=== PATIENT | female | born 1990 | race Caucasian/White ===

== ENCOUNTER → 2020-11-02 14:09 | Outpatient (CLI) | payer MEDICAID, SELFPAY ==
[2014-03-17 21:03] VITALS: BMI 27.1
[2020-11-02 15:04] LABS: Absolute Lymphocyte Count 2.57 X10^3/uL (0.83-4.51); Absolute Neutrophil Count 7.8 X10^3/uL (2.0-7.7); Basophil# 0.04 X10^3/uL; Basophil% 0.3 % (0-1); Eosinophil# 0.27 X10^3/uL; Eosinophils% 2.4 % (0-5); Hematocrit 33.8 % (37-47); Hemoglobin 11.1 g/dL (12.0-15.0); Lymphocyte # 2.57 X10^3/ul (0.83-4.51); Lymphocyte % 22.5 % (19-41); Mean Corp Hgb Conc 32.8 g/dL (32-36); Mean Corpuscular Hgb 28.2 pg (27.0-32.0); Mean Platelet Vol. 8.9 fl (6.2-12.0); Monocyte# 0.64 X10^3/uL; Monocyte% 5.6 % (0-10); NRBC Flagged by Analyzer 0 % (0-5); Neutrophil % 68.2 % (47-70); Platelet Count 400 K/mm3 (150-450); RBC Distribution Width SD 40.2 fl (35.1-43.9); Red Blood Count 3.93 M/mm3 (4.2-5.4); White Blood Count 11.4 K/mm3 (4.4-11.0)
[2020-11-02 15:20] LABS: Glucose Challenge Gest 1H 50g 125 mg/dL (70-140)
[2020-11-03 09:26] LABS: HIV - WCH Non-Reactive (Nonreactive); Hepatitis B Surface Antigen Non-Reactive (Nonreactive); Hepatitis C Antibody Non-Reactive (Nonreactive); Rubella IgG Reactive (Nonreactive); Syphilis Antibodies Non-reactive
[2020-11-06 05:06] LABS: Chlamydia By Nucleic Acid AMP Negative (Negative)
[2020-11-06 08:41] LABS: Gonococcus By Nucleic Acid AMP Negative (Negative)
[2020-11-10 20:38] LABS: HPV APTIMA, High Risk Negative (Negative); HPV Reflexed? YES, CHARGE PATIENT
== END ==
PROVIDERS: PCP Internal Medicine; Visit Provider Obstetrics & Gynecology
DX: Z34.82 Encounter for supervision of other normal pregnancy, second trimester (principal); Z12.4 Encounter for screening for malignant neoplasm of cervix
CPT/HCPCS: 82950; 85025; 86703; 86762; 86780; 86803; 87086; 87088; 87340; 87491; 87591; 87624; 88175; G0145

== ENCOUNTER 2020-11-09 16:48 | Outpatient (CLI) | payer MEDICAID, SELFPAY ==
[2014-03-17 21:03] VITALS: BMI 27.1
[2020-11-09 17:01] VITALS: BMI 30.7
[2020-11-09 17:08] VITALS: BP 120/85; PULSE 83
--- NOTE | 2020-11-09 23:54 | OB.TRI.NOTE ---
HPI - General HPI Narrative TASHI ABRAHAM, is a 30 F BIB EMS at 27wga with c/o lightheadedness and feeling overheated while at 180 program. She was wearing a hoodie overtop of a shirt while outside and had eaten once today - approximately 2 hours prior to episode. EMS was called. Denies contractions, leaking of fluid or vaginal bleeding. PFSH PFSH Home Medications hydroxyzine HCl 50 mg PO QHS 11/09/20 [History Last Taken 1 Day Ago ~11/08/20] sertraline [Zoloft] 100 mg PO DAILY 11/09/20 [History Last Taken 1 Day Ago ~11/08/20] vit D3-folic [id number] 1 tab PO DAILY 11/09/20 [History Last Taken 1 Day Ago ~11/08/20] Allergy/AdvReac Type Severity Reaction Status Date / Time No Known Allergies Allergy Verified 03/17/14 21:06 Social History Smoking Status: Current every day smoker NST FHR Rate Baby A Baseline: 150 Variability:: Minimal Accelerations:: 15 x 15 Decelerations:: Variable NST Reactive:: Appropriate for gestational age FHR Category:: Category II Uterine Activity:: 0/10 Assessment & Plan (1) 27 weeks gestation of : PLAN: Pt feeling well and symptoms resolved d/c home Encourage hydration
== END 2020-11-09 18:05 | disposition home or self-care (01) ==
LOC: WPOUT 16:56 → WP 16:57
PROVIDERS: Referring Provider Obstetrics & Gynecology; Visit Provider Obstetrics & Gynecology
DX: O26.892 Other specified pregnancy related conditions, second trimester (principal); O99.332 Smoking (tobacco) complicating pregnancy, second trimester; R42 Dizziness and giddiness; F17.200 Nicotine dependence, unspecified, uncomplicated; Z3A.27 27 weeks gestation of pregnancy
CPT/HCPCS: 59025; 59050; 99218; G0378

== ENCOUNTER → 2021-01-12 | Outpatient (CLI) | payer MEDICAID, SELFPAY | END | disposition home or self-care (01) | LOC: LABSPEC 15:12 | PROVIDERS: Visit Provider Obstetrics & Gynecology | DX: Z36.85 Encounter for antenatal screening for Streptococcus B (principal) | CPT/HCPCS: 87081 ==

== ENCOUNTER 2021-02-04 15:40 | Inpatient (IN) | payer MEDICAID, SELFPAY ==
[2021-02-04] VITALS (48 sets, daily range): BP systolic 122–157; BP diastolic 65–96; PULSE 66–92; TEMP 36.5–36.9; O2SAT 96–98; BMI 36.6
[2021-02-04] MEDS: Lactated Ringers 1,000 ML 50 ML IV (16:15)
[2021-02-04 16:37] LABS: Amphetamine Urine VISTA NEGATIVE (<1000 ng/mL); Barbiturate Urine VISTA NEGATIVE (< 200 ng/mL); Benzodiazepine Urine VISTA NEGATIVE (< 200 ng/mL); Cocaine Urine VISTA NEGATIVE (< 300 ng/mL); Ecstacy Urine VISTA NEGATIVE (< 500 ng/mL); Methadone Urine VISTA NEGATIVE (< 300 ng/mL); PCP Urine VISTA NEGATIVE (< 25 ng/mL); THC Urine VISTA NEGATIVE (< 50 ng/mL); Vista UDS pH Range 6
[2021-02-04 16:49] LABS: Absolute Lymphocyte Count 2.45 X10^3/uL (0.83-4.51); Absolute Neutrophil Count 7.1 X10^3/uL (2.0-7.7); Basophil# 0.04 X10^3/uL; Basophil% 0.4 % (0-1); Eosinophil# 0.18 X10^3/uL; Eosinophils% 1.7 % (0-5); Hematocrit 33.7 % (37-47); Hemoglobin 10.8 g/dL (12.0-15.0); Lymphocyte # 2.45 X10^3/ul (0.83-4.51); Lymphocyte % 23.2 % (19-41); Mean Corpuscular Hgb 25.8 pg (27.0-32.0); Mean Corpuscular Volume 80.6 fL (81-99); Mean Platelet Vol. 9.2 fl (6.2-12.0); Monocyte# 0.74 X10^3/uL; NRBC Flagged by Analyzer 0 % (0-5); Neutrophil # 7.06 X10^3/uL (2.7-7.7); Neutrophil % 66.9 % (47-70); Platelet Count 356 K/mm3 (150-450); RBC Distribution Width CV 14.5 % (11.6-14.6); RBC Distribution Width SD 41.7 fl (35.1-43.9); Red Blood Count 4.18 M/mm3 (4.2-5.4); White Blood Count 10.6 K/mm3 (4.4-11.0)
[2021-02-04] MEDS: Oxytocin 30 units/NS 500 ml 30 UNITS/500 ML IV.SOLN IV (18:11)
--- NOTE | 2021-02-04 18:17 | HP.PCM.OB_ITS ---
HPI - General General Date of Admission: 02/04/21 HPI Narrative AYLA ABRAHAM, is a 31 F who presents at 39 5/7 weeks gestation with leaking of clear fluid since 1400h. Maternal Data Information SANDRA Calculator Estimated Delivery Date Method Current WG Current Estimate 02/06/21 LMP (Certain) 39w 5d PFSH PFSH Medical History (Updated 02/04/21 @ 18:[address] Yokasta Queen MD) ADHD (attention deficit hyperactivity disorder) Anxiety Depression History of drug use Marginal insertion of umbilical cord Methamphetamine abuse in remission PCOS (polycystic ovarian syndrome) SAB (spontaneous ) Tetrahydrocannabinol (THC) use disorder, mild, abuse Home Medications sertraline [Zoloft] 125 mg PO DAILY 11/09/20 [History Last Taken 02/03/21 23:30 125 mg] Allergy/AdvReac Type Severity Reaction Status Date / Time No Known Allergies Allergy Verified 03/17/14 21:06 Family History Grandfather CVA (cerebral vascular accident) Heart disease Cancer Grandmother CVA (cerebral vascular accident) Diabetes Grandfather Cancer Diabetes Grandmother Diabetes Surgical History (Updated 02/04/21 @ 18:[address] Yokasta Queen MD) H/O elbow surgery S/P ACL reconstruction Social History (Updated 02/04/21 @ 16:41 by Licha Xie) number of children: 0 Smoking Status: Former smoker History 2 Elective abortions 0 Hx Para 0 Spontaneous abortions 1 Hx # Term Pregnancies 0 Ectopic pregnancies 0 Hx # Pregnancies 0 Multiple births 0 # of living children 0 NST FHR Rate Baby A Baseline: 135 Variability:: Moderate Accelerations:: 15 x 15 Decelerations:: None NST Reactive:: Yes FHR Category:: Category I Uterine Activity:: 1-2/10 min Vital Signs Vital Signs Vital Signs: 02/04/21 15:36 02/04/21 15:37 02/04/21 15:39 Temperature 98.4 F Pulse Rate 92 89 Blood Pressure 132/83 H BP Systolic 132 BP Diastolic 83 Pulse Ox 97 02/04/21 16:57 02/04/21 16:58 Temperature 97.7 F L Pulse Rate 83 Blood Pressure 133/80 H BP Systolic 133 BP Diastolic 80 Pulse Ox Weight Weight: 119.3 kg Body Mass Index (BMI) 36.6 Labs Labs Labs: Blood Type AB POSITIVE Antibody Screen NEGATIVE Hct 33.7 % (37-47) L Hgb 10.8 g/dL (12.0-15.0) L Syphilis Total Ab Non-reactive Rubella IgG Antibody Reactive (Nonreactive) Hep Bs Antigen Non-Reactive (Nonreactive) Neisseria gonorrhoeae DNA (SPENCER) Negative (Negative) HIV 1&2 Antibody Non-Reactive (Nonreactive) Glucose 1 Hr 50 gm 125 mg/dL (70-140) OB PROBLEM LIST: AB+ ADHD, had taken Adderall As of today, 93 days sober from Methamphetamine Depression/anxiety; takes Sertraline as prescribed. PHQ9 on 08/13/20: 2. Denies any SI. Epidural planned, wants to take office childbirth class Marginal cord insertion NIPT negative Recently completed in-house drug rehab in [place], [place]. Has out-pt. treatment. No Subutex used. Smoker , started on Nicotine patch SO/FOB currently incarcerated until November 2020. Plans to be involved. His 1st baby. Transfer of care at 23wks PRIOR DELIVERY HISTORY DEL DATE GEST LAB WT LB WT OZ TYPE ANES LABOR TX Apr 14 6 0 0 0 Sab None No ANTEPARTUM FLOW CHART VISIT GE RTC FU F F PA U U DATE WK MD WKS HT PN HR M SS BP ED WT PA GL D EF ST __ ____ ___ __ __ ___ __ __ __ ___ __ __ __ ___ __ 08 Jan 39 JMW 1 38 V + + 128/72 1+ 269 tr ne 4 75 -2 02 Jan JMW 1 38 V + + 128/70 sl 270 tr - 3+ 75 -2 27 Dec JMW 1 38 V + + 122/64 1+ 268 tr - 3 50 P 20 Dec JM 1 36 V + + 124/80 sl 261 tr - 04 Dec JM 2 34 V + + 118/64 sl 258 tr - Nov JM 2 32 V on + 132/78 sl 255 tr - 08 Dec 22 SHM 2 30 ? + + 138/74 0 252 ne ne 24 Nov 20 JM 2 28 - + + 102/64 0 247 - - 10 Nov 18 JM 2 26 - on + 118/72 0 241 tr - October 15 JM 2 23 - + + 130/76 0 231 tr - ANTEPARTUM NOTE(S): Jan 31 2021: Inc vaginal pressure lost mucous plug. Jan 25 2021: Good FM, after discussion Jan 19 2021: edema, ctx's, pelvic pressure Jan 12 2021: Ctxs-occas, GBS Today,LARC form signed Dec 27 2020: see note Dec 14 2020: Sono Today,Good FM,Feeling Well Nov 30 2020: Nov 16 2020: difficulty sleeping, headaches Nov 02 2020: see note Oct 16 2020: doing well COMPREHENSIVE ANTEPARTUM NOTE(S): Jan 23 2021: H taken to OB. ab Jan 22 2021: Call Msg. Ayla is a 31 yr old Gr 2, SAB 1 calling @ 37 wks 5 days reporting she lost her mucous plug, having some back discomfort, no spotting. no leaking fluid. FM reported as being good. Reviewed can lose mucous plug several weeks ahead of labor. To call back if any further concerns. Jan 19 2021: Ayla is here at 37 weeks for a PNV. Pt states she is miserable. Consistent edema in b/t feet and hands. Pt frequently elevates feet, pushes water and avoids salty foods. Has concerns regarding 7lb weight gain in 7 days. Good FM. Having some tha abdul, pelvic pressure and clear discharge. Would like cervix check. Voiced concern regarding not being able to get an epidural if she is too far al Jan 12 2021: 36wk, GBS collected today. Marginal cord insertion, u/s today AGA. Doing well on Zoloft. Dec 27 2020: Ayla is being seen for PNV. Pt is 34 weeks and 1 day. Pt complains of some nausea and indigestion. She also states that she had some twisting like feeling in her pelvic area that was on and off for about 2-3 hours. AM Dec 27 2020: 34 weeks, pelvic cramping some hot flashes. Cervical exam today closed. Patient much improved on Zoloft 125 mg daily, repeat Rx sent. GBS next visit. Dec 14 2020: 32 weeks, growth ultrasound today AGA. Patient with anxiety on Zoloft 100 mg daily, sleeping improved with Benadryl. Will increase Zoloft to 125 mg daily. History of opiate abuse, desires no opioids after delivery. Will repeat growth ultrasound at 36 weeks with marginal cord insertion and history of opiate abuse, ordered. Discussed LARCs. Nov 30 2020: Ayla is here for PNV. Melatonin not working for sleep. Was taking 20mg. Has switched to Benadryl 25mg and seems to work better. Feeling well with good FM. No edema present today. Urine neg/neg. LSS Nov 30 2020: PTL, ROM, FM precautions. Pt sleeping better with Benadryl, request prescription as she is trying to save money. Living at home with parents now and making changes to make room for baby. She created a registry and will get supplies soon. Her boyfriend, QUENTIN, was released from halfway last week, but turned himself in earlier this week and is in the [facility] group home. She reports anxiety about him not b Nov 16 2020: Ayla is here for a PNV. Good FM. No edema at this time. Pt states she is unable to sleep despite use of hydroxyzine. Occasional headaches p resent, pt unsure if this is related to decreased caffeine intake. Sometimes gets black spots in her vision, BP WNL, no protein in urine. ER visit last week. Pt passed out at work, believes she was just overheated. Baby and mother were fine. Pushing more flui Nov 16 2020: 28wk, having trouble sleeping. Vistaril not helping. Will start melatonin. IVETTE Nov 02 2020: Ayla is here for visit. Labs today along with u/s. Nov 02 2020: 26wk, U/s today AGA confirmed SANDRA. Marginal cord insertion, for growth u/s 32wks and 36wks needs ordered. Late care, PNP today 1hr GTT today Pap today. Anx/Depression now Stable on Zoloft and Vistrail. IVETTE Oct 16 2020: Ayla is here for visit. She has several issues she would like to discuss with Dr Serrano. Relates on Zoloft 75 mg and feels this needs increased. Would like to increase to at least 100 mg. She completed EPDS with score of 8. She needs refills on all meds she takes. Zoloft, Vistaril, Vitamin D, and Amoxicillin. She would also like to have Rx for Nicotine patch as she would like to Oct 16 2020: 23wk, at 23wk/6d with FINAL SANDRA: 02/06/21 by LMP c/w 12wk u/s late transfer of care here. Dating final. No PNP, will get with 1hr GTT at next visit. Unknown pap with hx of abnormal pap here in 2013, will repeat with cultures next visit. Marginal cord insertion dx by previous OB, will confirm with growth at next visit. Previously on methamphetamines s/p inpatient detox now on no meds and is sob Oct 05 2020: TELEHEALTH NOB VISIT, 60 MINUTE DURATION. Ayla is a 30 year old A1 with an SANDRA of 02/07/2021, current GA is 22 w 1 d. She is transferring care to this office after receiving care in [place], [place] (she states that she had three PNV's), as she was in a in-house rehab center for Methamphetamine addiction in [place], [place]. She was released last Friday, and lives with her very suppor REVIEW OF SYSTEMS: GENERAL - Denies fever, or chills SKIN - Denies rash, new skin lesions, or change in moles EYES - Denies blurred vision, or change in visual acuity EARS - Denies ear pain, or difficulty hearing NOSE - Denies nasal congestion, discharge, or bleeding MOUTH - Denies sore throat, or difficulty swallowing NECK - Denies pain or swelling RESPIRATORY - Denies shortness of breath, cough, wheezing CARDIOVASCULAR - Denies palpitations, chest pain, orthopnea, PND, peripheral edema, syncope or claudication GASTROINTESTINAL - Denies nausea, vomiting, diarrhea, constipation, Denies abdominal pain, melena and or bright red blood GENITOURINARY - Denies dysuria, frequency of urination, urgency, or hesitancy MUSCULOSKELETAL - Denies joint or muscle pain, or back pain NEUROLOGICAL - Denies localized numbness, weakness, or tingling PSYCHIATRIC - Denies depression, anxiety, substance abuse or suicide attempts ENDOCRINE - Denies heat or cold intolerance, weight loss or gain, increasing thirst HEMATO-IMMUNOLOGIC - Denies easy bruising, bleeding, oral ulcerations or recurrent infections GENETICS SCREENING: Age 35+ years: No Thalassemia: No Neural Tube Defect: No Down Syndrome: No JEANNETTE-SACHS: No Sickle Cell Disease: No Hemophilia: No Musc. Dystrophy: No Cystic Fibrosis: No-declines screening Lyerly Chorea: No Mental Retardation: No Fragile X: No Other genetic: No Other defects: No SABs/still births: No Drugs since LMP: No INFECTION HISTORY: High risk AIDS: No High risk Hepatitis: No Exposed to TB: No Exposed to Herpes: No Rash/viral illness since LMP: No History of STD: No MENSTRUAL HISTORY: *Menses Amount/Duration: 7 daysMenses Regularity: IrregularFrequency: monthlyMenarche (Age Onset): 13* PAST SUMMARY: PARITY: 1. Total Pregnancies............ 2 2. Full Term Pregnancies........ 0 3. Premature.................... 0 4. Abortions - Induced.......... 0 5. Abortions - Spontaneous...... 1 6. Ectopics..................... 0 7. Multiple Births.............. 0 8. Living Children.............. 0 PAST #1: Date of :.................. 03/26/20 Gestation Weeks:................ 6 Length of labor(hours):......... 0 Sex:............................ Weight-lbs:............... 0 Weight-oz:................ 0 Type of Delivery:............... Sab Type of Anesthesia:............. None Place of Delivery:.............. none Treatment of Labor?:.... No Comment: DATE APPROX. Assessment & Plan (1) SROM (spontaneous rupture of membranes): PLAN: GBS neg Latent labor Recommend pitocin - reviewed r/b. Pt agreeable. Pain management per patient request - will plan to avoid/limit opiates given hx opiate abuse (2) : QUALIFIERS: Weeks of gestation: 39 weeks Qualified Code(s): Z3A.39 - 39 weeks gestation of
[2021-02-04] MEDS: Lactated Ringers 500 ML 999 ML IV (21:26)
[2021-02-04] MEDS: Sertraline 50 MG Tablet 125 MG PO (21:53)
[2021-02-04] MEDS: Ondansetron 4 MG/2 ML Vial IV (23:09)
[2021-02-04] MEDS: 0.9% Saline Lock 10 ML Syringe IV (23:10)
[2021-02-05] VITALS (35 sets, daily range): BP systolic 112–142; BP diastolic 58–87; PULSE 64–96; RESP 16–18; TEMP 36–37.1; O2SAT 92–99
[2021-02-05] MEDS: Acetaminophen 500 MG Tablet PO (01:21)
[2021-02-05] MEDS: Ondansetron 4 MG/2 ML Vial IV ×2 (03:42→07:37)
[2021-02-05] MEDS: Mag Hydrox/Al Hydrox/Simeth 30 ML UDC PO (04:10)
[2021-02-05] MEDS: Lactated Ringers 1,000 ML 200 ML IV (04:16)
[2021-02-05] MEDS: Lactated Ringers 500 ML 999 ML IV (05:26)
--- NOTE | 2021-02-05 07:08 | PN.OBGYN_ITS ---
Subjective Subjective Reports pressure in her bottom. Objective Data Objective Data Vital Signs: Vital Signs Temp Pulse BP Pulse Ox 97.3 F L 79 140/87 H 97 02/05/21 06:42 02/05/21 06:43 02/05/21 06:43 02/05/21 06:43 Weight: 119.3 kg Body Mass Index (BMI) 36.6 Intake & Output: Intake and Output for Last 24 Hours 02/03/21 02/04/21 02/05/21 23:59 23:59 23:59 Intake Total 942.47 / 942.47 1325.08 / 1325.08 Output Total 250 / 250 1200 / 1200 Balance 692.47 / 692.47 125.08 / 125.08 Lab / Micro Data Result Diagrams: 02/04/21 16:15 Labs: Laboratory Results - last 24 hr 02/04/21 15:30: Urine Opiates Screen NEGATIVE, Urine Methadone Screen NEGATIVE, Ur Barbiturates Screen NEGATIVE, Ur Phencyclidine Scrn NEGATIVE, Ur Amphetamines Screen NEGATIVE, U Methamphetamin-MDMA NEGATIVE, U Benzodiazepines Scrn NEGATIVE, Urine Cocaine Screen NEGATIVE, U Cannabinoids Screen NEGATIVE, Ur Drug Screen Comment 02/04/21 16:15: WBC 10.6, RBC 4.18 L, Hgb 10.8 L, Hct 33.7 L, MCV 80.6 L, MCH 25.8 L, MCHC 32.0, RDW Std Deviation 41.7, RDW Coeff of Amanda 14.5, Plt Count 356, MPV 9.2, Immature Gran % (Auto) 0.800, Neut % (Auto) 66.9, Lymph % (Auto) 23.2, Brewster % (Auto) 7.0, Eos % (Auto) 1.7, Baso % (Auto) 0.4, Absolute Neuts (auto) 7.1, Absolute Lymphs (auto) 2.45, Nucleated RBC % 0 02/04/21 16:15: Blood Type AB POSITIVE, Antibody Screen NEGATIVE Micro: Microbiology 02/04/21 16:15 Nasal Secretion SARS-CoV-2 Antigen (Rapid) - Final Physical Exam Narrative GEN - NAD, AAO x 3 FHR 130, moderate variability, + accelerations, no decelerations TOCO 3-4/10 min SVE 9.5/95/1 Assessment & Plan (1) SROM (spontaneous rupture of membranes): PLAN: Continue in labor Anticipate Maternal and statuses reassuring (2) : QUALIFIERS: Weeks of gestation: 39 weeks Qualified Code(s): Z3A.39 - 39 weeks gestation of
[2021-02-05] MEDS: Oxytocin 30 units/NS 500 ml 30 UNITS/500 ML IV.SOLN 334 UNITS IV (09:08)
--- NOTE | 2021-02-05 09:16 | EX.PCM.OBRPT ---
Maternal Data Information SANDRA Calculator Estimated Delivery Date Method Current WG Current Estimate 02/06/21 LMP (Certain) 39w 6d Vaginal Delivery Findings Description of Procedure: Normal spontaneous vaginal delivery of a viable male , vertex OXANA. Head and shoulders delivered with ease. Cord cut and clamped. Baby handed off to patient. Placenta delivered via cord traction and fundal massage. First-degree midline perineal laceration noted and repaired in typical fashion. EBL 250 cc Apgars 8/9
[2021-02-05] MEDS: 0.9% Saline Lock 10 ML Syringe IV (11:40)
[2021-02-05] MEDS: Ibuprofen 600 MG Tablet PO ×2 (13:11→20:51)
[2021-02-05] MEDS: Acetaminophen 500 MG Tablet 1000 MG PO (16:34)
--- NOTE | 2021-02-05 20:41 | NURSING ---
Pt. has done very extensive research/learning about childbirth, infant care, . Pt. is very committed to making work, but has also learned a lot about PCOS and it's possible effects on . Very knowledgeable about this with staff, discussing all areas that she has researched. Pt. is very eager to care for infant - very eager to hold him, talk to him. Feels that this is one of the best things that could have happened to her, and wants to do her very best for this baby. Mother has been here all day and has been very supportive to her. Ayla is very attentive to 's needs, attempting to feed often, using bulb syringe after education on it, making sure nursing has everything we need from her and the baby for their care.
[2021-02-05] MEDS: Sertraline 50 MG Tablet 25 MG PO ×2 (22:14→23:45)
[2021-02-05] MEDS: Sertraline 100 MG Tablet PO (22:15)
[2021-02-06 00:02] VITALS: BP 112/78; PULSE 81; RESP 18; TEMP 36.6
[2021-02-06] MEDS: Acetaminophen 500 MG Tablet 1000 MG PO (02:06)
[2021-02-06 03:39] VITALS: BP 109/57; PULSE 89; RESP 18
--- NOTE | 2021-02-06 06:26 | PCM.PN.OB ---
Subjective Subjective No overnight complaints Objective Data Objective Data Vital Signs: Vital Signs Temp Pulse Resp BP Pulse Ox 97.8 F 89 18 109/57 L 92 02/06/21 00:02 02/06/21 03:39 02/06/21 03:39 02/06/21 03:39 02/05/21 09:45 Oxygen Delivery Method Room Air Weight: 263 lb 0.183 oz Body Mass Index (BMI) 36.6 Intake & Output: Intake and Output for Last 24 Hours 02/04/21 02/05/21 02/06/21 23:59 23:59 23:59 Intake Total 942.47 / 942.47 2716.27 / 2716.27 Output Total 250 / 250 2400 / 2400 Balance 692.47 / 692.47 316.27 / 316.27 Lab / Micro Data Result Diagrams: 02/04/21 16:15 Micro: Microbiology 02/04/21 16:15 Nasal Secretion SARS-CoV-2 Antigen (Rapid) - Final Physical Exam Const alert, oriented x3, no apparent distress, average body habitus, healthy appearing and well nourished HEENT normocephalic and moist oral mucous membranes Head and Scalp: atraumatic Face and Sinus: normal facial exam Neck full ROM Lymph Lymphatic: no lymphadenopathy noted Resp normal respiratory effort, no retractions and no use of accessory muscles GI normal to inspection, nondistended, normoactive bowel sounds GI Narrative: Uterus firm and below umbilicus Extremity normal to inspection, full ROM and no clubbing, cyanosis or edema Skin no rashes or lesions noted Psych mental status grossly normal, affect normal, speech normal and activity/motor behavior normal Assessment & Plan (1) Vaginal delivery: PLAN: day 1 status post . Breast-feeding. Pain well controlled. Okay to discharge home today if okay with engineering technical analyst and social work
--- NOTE | 2021-02-06 06:28 | PCM.DC ---
Discharge Instructions Diet Discharge Diet: No restrictions Activity Discharge Activity: Return to Normal Activity, May Drive and May Shower May resume sexual activity in: 4-6 weeks Weight Bearing Status: Weight bearing as tolerated Dressing / Incision Call your doctor if your incision/area has: Continuous Slow Oozing and Foul Smelling Discharge Call your doctor if you observe: Fever of 101 or Higher, Shortness of breath and Chest pain Follow Up Care Please Follow Up With: Eder Serrano MD When: 2-week telehealth visit, 4 to 6-week visit Test Results: Test results from this visit will be discussed in further detail at your follow-up appointment, if applicable. Discharge Plan Admission Admit Date/Time: 02/04/21 15:40 Attending Provider: Eder Serrano Primary Care Provider: Care PhysicianMarva Primary Discharge Orders/Prescriptions Prescriptions: No Action sertraline [Zoloft] 100 mg Tablet 125 mg PO DAILY RF: 0 Disposition Discharge Orders: Discharge Patient (Routine); Ordered 02/06/21 Ordered By: Dr. Eder Serrano
[2021-02-06] MEDS: Ibuprofen 600 MG Tablet PO (08:44)
[2021-02-06 08:59] VITALS: BP 119/80; PULSE 87; RESP 18; TEMP 37
[2021-02-06 14:00] VITALS: BP 120/77; PULSE 84; RESP 16; TEMP 36.8
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
--- NOTE | 2021-03-05 11:54 | CASEMGMT ---
Social Work Labor and Delivery unit Meconium drug screen results at that and negative for any drugs of abuse. No further referrals indicated. -TAYE Barone, PROGRAM DEVELOPER
--- NOTE | 2021-03-06 17:01 | CASEMGMT ---
Social Work Labor and Delivery Unit Received phone call from mother of baby (MOB) and MOB therapist, which this telegraphic typewriter operator chief coordinated at time of discharge from delivery. Message left regarding MOB inquiry as to whether children services will be following up. This telegraphic typewriter operator chief called the MOB, and updated that the meconium drug screen has come back negative and therefore no additional calls have been made to children services. Educated MOB that if children services has not made contact with the MOB in the last month the case would not be opened. MOB expressed gratitude and appreciation for social work update, and reports to be following up with aftercare which was set. MOB reports to be seeing her therapist weekly, and to be enjoying the time with therapy. No other social service director requested or indicated. -TAYE Barone, TUBER HELPER *This note was generated with [employer] dictation software. It may contain incorrect words, spelling, and punctuation that were not noted in review of the chart prior to signing*
== END 2021-02-06 16:15 | disposition home or self-care (01) | DRG 560 ==
LOC: WPOUT 15:45 → WP 15:45
PROVIDERS: Obstetrics & Gynecology; Admitting Provider Obstetrics & Gynecology; Referring Provider Obstetrics & Gynecology; Visit Provider Obstetrics & Gynecology
DX: O42.02 Full-term premature rupture of membranes, onset of labor within 24 hours of rupture (principal); O70.0 First degree perineal laceration during delivery; O99.344 Other mental disorders complicating childbirth; F32.9 Major depressive disorder, single episode, unspecified; F41.9 Anxiety disorder, unspecified; O99.324 Drug use complicating childbirth; F12.10 Cannabis abuse, uncomplicated; F15.11 Other stimulant abuse, in remission; Z3A.39 39 weeks gestation of pregnancy; Z37.0 Single live birth; Z87.891 Personal history of nicotine dependence
CPT/HCPCS: 59025; 59050; 76815; 80307; 85025; 86850; 86900; 86901; 87426; 99218; J7120; A4216; G0378; J2405

== ENCOUNTER 2023-05-20 01:36 | Emergency (ER) | payer MEDICAID, SELFPAY ==
[2023-05-20 01:37] VITALS: BP 138/87; PULSE 101; RESP 18; TEMP 36.6; O2SAT 99; BMI 30.7
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
== END 2023-05-20 02:30 | disposition home or self-care (01) ==
PROVIDERS: Emergency Provider Emergency Medicine; Visit Provider Emergency Medicine
DX: O9A.311 Physical abuse complicating pregnancy, first trimester (principal); O99.341 Other mental disorders complicating pregnancy, first trimester; F32.A Depression, unspecified; F41.9 Anxiety disorder, unspecified; Z3A.11 11 weeks gestation of pregnancy; Z87.891 Personal history of nicotine dependence
CPT/HCPCS: 99282

== ENCOUNTER 2023-07-06 22:17 | Emergency (ER) | payer MEDICAID, SELFPAY ==
[2023-07-06 22:17] VITALS: BP 113/74; PULSE 105; RESP 14; TEMP 36.4; O2SAT 95; BMI 32.1
--- OUTSIDE RECORDS SUMMARY | 2023-07-06 22:38 | XMS RPT_ITS | CCD ---
Author Name Unknown Address [address] [place] [address] Organization [facility] Care Team Providers Care Questioned Documents Examiner Name Role Phone DEVYN DAUGHERTY Attending U RINKU Oh Attending Unavailable JHONATAN MONTEMAYOR, DR VELAZCO Primary Care Physician [facility] Attending Unava ilable [place], [facility] Primary Care Unava ilable [place], [facility] Admitting Unava ilable NO, DOCTOR ON Consulting Unavailable DR JUAN A ISRAEL MD Primary Care Physician Danilo Avila MD Primary Care Provider No, Physician Primary Care Provider UnavailGATO Carrizales Attending Unavailable MAX, PHYSICIAN Primary Care Unavailable SONDRA PLUMMER Attending Unavailable DANILO AVILA Primary Care Unavailable HALIE RENE Attending Unavailable DANILO AVILA Primary Care Unavailable DANILO AVILA Primary Care Unavailable ZIGGY BONILLA Attending Unavailable SONDRA PLUMMER Referring Unavailable DANILO AVILA Primary Care Unavailable SONDRA PLUMMER Referring Unavailable DANILO AVILA Primary Care Unavailable TANNA MANZO Attending Unavail able Allergies Allergy Classification Reported Allergen(s) Allergy Type Date of Onset Reaction(s) Facility (1 source) 01/19/2019 (+) MRSA WOUND; Translations: [01/19/2019 (+) MRSA WOUND] Propensity to adverse reactions (disorder) [facility] Repository Medications Current Medications Medication Drug Class(es) Dates Sig (Normalized) Sig (Original) cephalexin 500 mg oral tablet (1 source) Cephalosporin Antibacterial Start: 09-03-2021 End: 09-10-2021 take 1 tablet by mouth every six hours Keflex use cephalexin Dose : 500 mg =, Oral, q6hr, X 7 day(s), # 28 tab(s), 0 Refill(s), 09/10/21 2:44:00 EDT, UTI - Urinary tract infection, 111.2 Start Date: 09/03/21 Stop Date: 09/10/21 Status: Ordered doxylamine succinate 10 mg / pyridoxine hydrochloride 10 mg delayed release oral tablet (1 source) Start: 05-31-2023 doxylamine-pyrid oxine, vit B6, (DICLEGIS) 10-10 mg Indications: Morning sickness Two tabs at bedtime on days 1-2; if symptoms persist, take 1 tab in AM and 2 tabs at bedtime on day 3 . 90 tablet 0 05/31/2023 Active phenazopyridine hydrochloride 100 mg oral tablet (1 source) Start: 09-03-2021 End: 09-06-2021 Pyridium 100 mg oral tablet Dose : 100 mg = 1 tab(s), Oral, TID, X 3 day(s), # 9 tab(s), 0 Refill(s), 09/06/21 2:44:00 EDT, UTI - Urinary tract infection Start Date: 09/03/21 Stop Date: 09/06/21 Status: Ordered Completed/Discontinued Medications Medication Drug Class(es) Dates Sig (Normalized) Sig (Original) 24 hr buPROPion hydrochloride 150 mg extended release oral tablet (1 source) Aminoketone Start: 04-10-2021 End: 04-16-2023 take 1 tablet by mouth once daily buPROPion XL (WELLBUTRIN XL) 150 mg 24 hr tablet Take 1 tablet by mouth once daily. 30 tablet 1 04/10/2021 04/16/2023 Discontinued (Discontinued by Patient) Problems Active Problems Problem Classification Problem Date Documented Da te Episodic/Chronic Abdominal pain (1 source) Generalized abdominal pain; Translations: [Generalized abdominal pain] 07-02-2023 Episodic Administrative/social admission (6 sources) Food insecurity; Translations: [Food insecurity] Onset: 04-16-2023 3 Episodic Anxiety disorders (6 sources) Anxiety; Translations: [Anxiety disorder, unspecified] Onset: 02-04-2018 04-16-2023 Chronic Asthma (5 sources) Asthma; Translations: [Unspecified asthma, uncomplicated] Onset: 04-16-2023 04-16-2023 Chronic Attention-deficit, conduct, and disruptive behavior disorders (6 sources) Attention deficit hyperactivity disorder; Translations: [Attention-deficit hyperactivity disorder, unspecified type] Onset: 02-04-2018 04-16-2023 Chronic Disorders of teeth and jaw (2 sources) Dental caries, unspecified; Translations: [Other specified disorders of gingiva and edentulous alveolar ridge] Onset: 08-19-2020 Episodic Mood disorders (6 sources) Depressive disorder; Translations: [Depression] Onset: 04-10-2021 04-16-2023 Chronic Nonmalignant breast conditions (6 sources) Breast tenderness; Translations: [Mastodynia] Onset: 04-16-2023 04-16-2023 Episodic Other complications of (6 sources) H/O: miscarriage; Translations: [Supervision of with other poor reproductive or obstetric history, unspecified trimester] Onset: 04-16-2023 04-16-2023 Episodic Other complications of (6 sources) Headache; Translations: [Other specified related conditions, first trimester] Onset: 04-16-2023 04-16-2023 Episodic Other complications of (6 sources) Nausea and vomiting; Translations: [Vomiting of , unspecified] Onset: 04-16-2023 04-16-2023 Episodic Other complications of (6 sources) Maternal tobacco use; Translations: [Smoking (tobacco) complicating , first trimester] Onset: 04-16-2023 04-16-2023 Episodic Other complications of (6 sources) Caffeine user; Translations: [Caffeine use during in first trimester] Onset: 04-16-2023 04-16-2023 Episodic Other complications of (1 source) Morning sickness; Translations: [Mild hyperemesis gravidarum] 05-31-2023 Episodic Other complications of (1 source) Supervision of with other poor reproductive or obstetric history, unspecified trimester; Translations: [History of spontaneous , currently ] Onset: 04-16-2023 Episodic Other endocrine disorders (6 sources) Polycystic ovary syndrome; Translations: [Polycystic ovarian syndrome] Onset: 05-05-2018 04-16-2023 Chronic Other endocrine disorders (1 source) Polycystic ovarian syndrome; Translations: [PCOS (polycystic ovarian syndrome)] Onset: 04-16-2023 Chronic Other gastrointestinal disorders (1 source) Constipation; Translations: [Constipation, unspecified] 07-02-2023 Episodic Other nutritional; endocrine; and metabolic disorders (7 sources) Body mass index 25-29 - overweight; Translations: [Overweight] Onset: 02-04-2018 04-16-2023 Episodic Other and delivery including normal (19 sources) with uncertain dates; Translations: [Encounter for supervision of normal , unspecified, first trimester] Onset: 04-16-2023 04-16-2023 Episodic Other screening for suspected conditions (not mental disorders or infectious disease) (1 source) Cancer cervix screening status; Translations: [Encounter for screening for malignant neoplasm of cervix] 04-16-2023 Episodic Residual codes; unclassified (6 sources) Gestation period, 9 weeks; Translations: [9 weeks gestation of ] Onset: 04-16-2023 04-16-2023 Episodic Residual codes; unclassified (1 source) Gestation period, 18 weeks; Translations: [18 weeks gestation of ] 07-02-2023 Episodic Substance-related disorders (6 sources) History of drug abuse; Translations: [History of drug use] Onset: 04-16-2023 04-16-2023 Chronic Unclassified (1 source) History of drug use; Translations: [History of drug use] Onset: 04-16-2023 Urinary tract infections (1 source) Urinary tract infectious disease; Translations: [Urinary tract infection, site not specified] Onset: 09-03-2021 Episodic Past or Other Problems Problem Classification Problem Date Documented Da te Episodic/Chronic NEGATED: Highlighted row has been ruled out!Unclassified (1 source) No known active problems 05-31-2023 Results Test Name Value Interpretation Reference Range Facil ity Vital Signs Date Time Vital Sign Value Performing Clinician Facility 07-02-2023 10:16-0500 Body weight 102.97 kg Halie Rene APRN.CNM Work Phone: [facility] 07-02-2023 10:16-0500 Diastolic blood pressure 70 mm[Hg] Halie Plotts B2B SALES PROFESSIONAL.CNM Work Phone: [facility] 07-02-2023 10:16-0500 Systolic blood pressure 122 mm[Hg] Halie Plotts B2B SALES PROFESSIONAL.CNM Work Phone: [facility] 05-31-2023 12:36-0500 Body temperature 97.81 [degF] Broegan Sautter PA-C Work Phone: [facility] 05-31-2023 12:36-0500 Body weight 100.7 kg Broegan Sautter PA-C Work Phone: [facility] 05-31-2023 12:36-0500 Diastolic blood pressure 70 mm[Hg] Broegan Sautter PA-C Work Phone: [facility] 05-31-2023 12:36-0500 Heart rate 99 /min Broegan Sautter PA-C Work Phone: [facility] 05-31-2023 12:36-0500 Respiratory rate 17 /min Broegan Sautter PA-C Work Phone: [facility] 05-31-2023 12:36-0500 SaO2% (BldA) [Mass fraction] 95 % Broegan Sautter PA-C Work Phone: [facility] 05-31-2023 12:36-0500 Systolic blood pressure 128 mm[Hg] Broegan Sautter PA-C Work Phone: [facility] 04-16-2023 09:06-0500 Body height 180.3 cm Sondra Plummer B2B SALES PROFESSIONAL.CNC MACHINE PROGRAMMER Work Phone: [facility] 04-16-2023 09:06-0500 Body weight 96.16 kg Sondra Plummer APRN.CNC MACHINE PROGRAMMER Work Phone: [facility] 04-16-2023 09:06-0500 Diastolic blood pressure 60 mm[Hg] Sondra Plummer B2B SALES PROFESSIONAL.CNC MACHINE PROGRAMMER Work Phone: [facility] 04-16-2023 09:06-0500 Systolic blood pressure 110 mm[Hg] Sondra Plummer APRN.CNP Work Phone: [facility] 09-03-2021 01:44-0400 Body temperature 96.98 [degF] NUVIA VALADEZ DO [facility] 09-03-2021 01:44-0400 Body weight 111.2 kg NUVIA VALADEZ DO [facility] 09-03-2021 01:44-0400 Diastolic blood pressure 95 mm[Hg] NUVIA VALADEZ DO [facility] 09-03-2021 01:44-0400 Heart rate 93 /min NUVIA VALADEZ DO [facility] 09-03-2021 01:44-0400 Respiratory rate 18 /min NUVIA VALADEZ DO [facility] 09-03-2021 01:44-0400 Systolic blood pressure 142 mm[Hg] NUVIA VALADEZ DO [facility] 06-04-2021 11:19-0500 Body temperature 98.06 [degF] DR JENNIFER SCOTT MD [facility] 06-04-2021 11:19-0500 Diastolic blood pressure 75 mm[Hg] DR JENNIFER SCOTT MD [facility] 06-04-2021 11:19-0500 Heart rate 86 /min DR JENNIFER SCOTT MD [facility] 06-04-2021 11:19-0500 Respiratory rate 16 /min DR JENNIFER SCOTT MD [facility] 06-04-2021 11:19-0500 Systolic blood pressure 127 mm[Hg] DR JENNIFER SCOTT MD [facility] Encounters Encounter Date Encounter Type Care Provider Facility Start: 07-02-2023 End: 07-02-2023 [facility] Start: 07-02-2023 End: 07-02-2023 Patient encounter procedure Halie Jian B2B SALES PROFESSIONAL.CNM Work Phone: OB/Gynecology Procedures Date Procedure Procedure Detail Performing Clinician Start: 07-02-2023 Urnls dip stick/tabl et rgnt auto w/o microscopy Halie eRne B2B SALES PROFESSIONAL.CNM Work Phone: Start: 06-06-2023 Antibody screen SONDRA GRIGGS Plan of Treatment Date Care Activity Detail Author Start: 04-10-2031 Tetanus vaccination Tetanus: Every 10yrs [facility] Start: 04-10-2031 Urine microalbumin profile DTaP,Tdap,Td Vaccine (2 - Td or Tdap) [facility] Start: 04-16-2028 HPV Testing HPV Testing [facility] Start: 04-16-2028 Screening for malignant neoplasm of cervix [facility] Start: 04-16-2023 End: 07-16-2023 CARRIER SCREEN, STANDARD CARRIER SCREEN, STANDARD Lab Routine Encounter for supervision of other normal in first trimester Expected: 04/16/2023, Expires: 07/16/2023 [facility] Work Phone: Immunizations Immunization Date Immunization Notes Care Provider Fa cili 04-10-2021 influenza, injectabl e, quadrivalent, contains preservative Tanna Paniagua MD Work Phone: [facility] 04-10-2021 tetanus toxoid, redu jefe diphtheria toxoid, and acellular pertussis vaccine, adsorbed Tanna Paniagua MD Work Phone: [facility] 04-10-2021 influenza virus vacc ine, unspecified formulation Tanna Paniagua MD Work Phone: [facility] Payers Date Payer Category Payer Medicaid [employer] [facility] [id number] 2022-Present [phone] [address] [place] [address] Medicaid [id number] 2022 Medicaid [id number] Unknown [id number] Social History Date Type Detail Facility Start: 12-26-2010 End: 05-31-2023 Smokes tobacco daily (finding) [facility] Assigned At [facility] Start: 12-26-2010 End: 10-24-2020 History of tobacco use Cigarette Smoker [facility] Start: 02-04-2018 End: 04-16-2023 Cigarettes smoked current (pack per day) - Reported 0.[address] [facility] Start: 04-16-2023 End: 05-31-2023 Tobacco use and exposure Smokeless tobacco non-user [facility] Start: 04-16-2023 End: 07-02-2023 Alcohol intake Ex-drinker (finding) [facility] Start: 02-04-2018 End: 04-16-2023 Tobacco use panel [facility] Adult Depression Screening Assessment [address] [facility] The thought of harmi ng myself has occurred to me Never [facility] Start: 02-21-[address] [facility] Start: 1990 Sex Assigned At Not on file [facility] History of tobacco use Passive smoker [facility] Start: 05-31-2023 Alcohol intake Lifetime non-drinker (finding) [facility] Start: 05-31-2023 Gender identity Identifies as female gender (finding) [facility] Start: 05-31-2023 Sexual orientation Heterosexual (finding) [facility] Goals Date Patient Goal Desired Activity /State Personal health goal Functional Status Date Assessment Result Facility 09-03-2021 Functional Status [facility] 09-03-2021 Functional Status [facility] Mental Status Date Assessment Result Facility 09-03-2021 Mental Status [facility] 09-03-2021 [facility] Clinical Notes 05-05-2018 to 07-02-2023 Quick Notes - Halie Rene APRN.CNM - 07/02/2023 10:29 AM ESTPatient InstructionsPatient InstructionsAttachGato Swenson PA-C - 05/31/2023 12:27 PM EST Note Date & Type Note Facility 07-02-2023 Miscellaneous Notes Formattin g of this note might be different from the original. S: Tashi Vega is a 33 year old female who presents at 18.5 weeks gestation as an add on for abdominal pain and pressure with urination. Stated yesterday started feeling not well and had a fever and nausea. Today, feeling pressure when trying to urinate. Denies any burning with urination, hematuria, vaginal bleeding or contractions. When questioned further, unsure of last time she had a bowel movement. Possible constipation. Stated lower back may hurt due to recent activity of dumpster diving . When questioned if she needed resources for food/ long term- stated No I wasn't doing that for that reason. O: See flow sheet Gen: No apparent distress Abd: Gravid, nontender FHT via doppler- 175 bpm ASSESSMENT/PLAN: 1. Encounter for supervision of normal first in second trimester - ICD9: V22.0, ICD10: Z34.02 (primary diagnosis) 2. 18 weeks gestation of - ICD9: V22.2, ICD10: Z3A.18 3. Abdominal pain 4. Constipation - No CVA tenderness - URINE OB DIP B/O- NEGATIVE - Reassurance provided- stated was scared something was wrong with baby but feeling better since hearing FHT's. P: 1) PTL/ Bleeding precautions reviewed and when to call 2) RTO - next week for anatomy US Halie Rene APRN.CNM documented in this encounter [facility] 07-02-2023 Instructions Grey Marquez Cma - 07/02/2023 10:17 AM EST SEQUENTIAL SCREENINGS The [facility] offers sequential screenings for women who are interested in screenings for chromosomal abnormalities and certain defects during a . The sequential screen combines ultrasound and blood tests to determine the risk of chromosomal abnormalities, including Down's Syndrome (Trisomy 21) and Trisomy 18, as well as open neural tube defects including spina bifida. Ultrasound examination is performed between 11 weeks and 13 weeks gestational age. Blood tests are drawn after the ultrasound and again later in the between 15 and 21 weeks gestational age. Please let your physician know if you are interested in this testing. It will require an appointment with our energy conservation technician. This is not an ultrasound performed by a physician in our office during a routine visit. SIGNS AND SYMPTOMS OF LABOR 1. Contractions every 10 minutes or more often 2. Clear, pink, or brownish fluid (water) leaking from vagina 3. Feeling that baby is pushing down, pressure 4. Low, dull backache 5. Cramps that feel like a period 6. Cramps with or without diarrhea If you notice any of the above symptoms, contact our office at [phone] and ask to speak with a nurse. After hours, you can call doctors registry at [phone] OR call [facility] at [phone] and ask to have the doctor foundation digger paged. If you consider this an emergency, dial 9-1-3 or go to your nearest emergency department. NEED HELP? Are you dealing with a violent or abusive relationship? Are you a victim of rape or sexual assult? Call [facility] ([place]) 24 hour Crisis Hotline: 286.666.4160 or 149-606-0297. MANUAL Your Guide to a Healthy manual is now on-line. Visit the [email or web address] to download your free copy documented in this encounter [facility] 05-31-2023 Instructions Gato Tsang PA-C - 05/31/2023 12:57 PM EST Script sent for diclegis. If symptoms persist or worsen beyond 7 days seek evaluation with OB. If you develop any abdominal pain, blood in stool or emesis, dark, tarry stools, signs of dehydration, dizziness, lightheadedness, bleeding seek immediate evaluation in the ED. FU with OB today. The following attachments cannot be sent through Care Everywhere.: Morning Sickness (Djiboutian)documented in this encounter [facility] 05-31-2023 History of Presen t illness Narrative Images from the original note were not included. Patient Name: [facility] Care Location: [address], [address] [facility] [id number] Date Of : Date Of Visit: 1990 05/31/2023 MRN# Provider: [id number] Gato Tsang PA-C Chief Complaint Patient presents with Preg test Needs a paper for rehab stating she is to go into treatment, wants zofran as well for morning sickness Assessment & Plan 1. , unspecified gestational age CANCELED: POC , Urine 2. Morning sickness doxylamine-pyridoxine, vit B6, (DICLEGIS) 10-10 mg No follow-ups on file. Medical Decision Making Considered dehydration, viral gastroenteritis, food poisoning, traveler's diarrhea, c diff, Crohn's, diverticulitis, cholecystitis, morning sickness, etc. Pt is currently. Pt does have an OB. Pt is reportedly morning sickness. Script sent for diclegis. Pt was also requesting a note saying that she can enter rehab for 30-45 days without needing a medical evaluation by the OB. I informed patient I am unable to provide this letter and I recommend contacting the Emergency line for her OB. Pt verbalized understanding and in agreement with plan. Subjective 33 y.o. female presents with Preg test (Needs a paper for rehab stating she is to go into treatment, wants zofran as well for morning sickness) Pt states I think I am 13 weeks and I am having really bad morning sickness. Pt has not taken any OTC or prescribed medications for the morning sickness. Pt reportedly has been able to keep food and fluid down. Pt states I need a note to say that I can go to treatment and that I don't have to be seen by an OB for 30-45 days. Review Of Systems Review of Systems Constitutional: Negative for appetite change, chills, diaphoresis, fatigue and fever. Respiratory: Negative for cough and shortness of breath. Cardiovascular: Negative for chest pain. Gastrointestinal: Positive for nausea and vomiting. Negative for abdominal pain and diarrhea. Genitourinary: Negative for decreased urine volume. Musculoskeletal: Negative for arthralgias and myalgias. Skin: Negative for color change, pallor, rash and wound. Neurological: Negative for dizziness, light-headedness and headaches. Medical History Past Medical History: Diagnosis Date ADHD Anxiety Asthma Depression Drug use PCOS (polycystic ovarian syndrome) Past Surgical History: Procedure Laterality Date ELBOW SURGERY Right KNEE ARTHROSCOPY W/ ACL RECONSTRUCTION Left There is no problem list on file for this patient. Social History Social History Tobacco Use Smoking status: Every Day Types: Cigarettes Passive exposure: Current Smokeless tobacco: Never Vaping Use Vaping Use: Never used Substance Use Topics Alcohol use: Never Drug use: Yes Types: Methamphetamines Family History History reviewed. No pertinent family history. Objective Physical Exam BP 128/70 Pulse 99 Temp 97.8 F (36.6 C) Resp 17 Wt 100.7 kg (222 lb) SpO2 95% Vision/Hearing Exam:No results found. Physical Exam Vitals and nursing note reviewed. Constitutional: General: She is not in acute distress. Appearance: Normal appearance. She is not ill-appearing, toxic-appearing or diaphoretic. HENT: Head: Normocephalic and atraumatic. Eyes: Conjunctiva/sclera: Conjunctivae normal. Cardiovascular: Rate and Rhythm: Normal rate and regular rhythm. Pulmonary: Effort: Pulmonary effort is normal. No respiratory distress. Breath sounds: Normal breath sounds. No stridor. No wheezing, rhonchi or rales. Abdominal: General: Abdomen is flat. There is no distension. Palpations: Abdomen is soft. There is no mass. Tenderness: There is no abdominal tenderness. There is no right CVA tenderness, left CVA tenderness, guarding or rebound. Hernia: No hernia is present. Musculoskeletal: Cervical back: Normal range of motion. No rigidity. Skin: General: Skin is warm and dry. Coloration: Skin is not jaundiced or pale. Findings: No bruising, erythema, lesion or rash. Neurological: Mental Status: She is alert. Mental status is at baseline. Psychiatric: Mood and Affect: Mood normal. Behavior: Behavior normal. Procedure Notes Procedures Results No results found for this or any previous visit (from the past 168 hour(s)). No orders to display Orders Placed This Visit No orders of the defined types were placed in this encounter. Medication List At End Of Visit Current Outpatient Medications Medication Sig Dispense Refill doxylamine-pyridoxine, vit B6, (DICLEGIS) 10-10 mg Two tabs at bedtime on days 1-2; if symptoms persist, take 1 tab in AM and 2 tabs at bedtime on day 3 . 90 tablet 0 No current facility-administered medications for this visit. Patient Instructions Script sent for diclegis. If symptoms persist or worsen beyond 7 days seek evaluation with OB. If you develop any abdominal pain, blood in stool or emesis, dark, tarry stools, signs of dehydration, dizziness, lightheadedness, bleeding seek immediate evaluation in the ED. FU with OB today. documented in this encounter [facility] documented in this encounter [id number] Miscellaneous Notes* Telephone Encounter - Reina Parks MSW - 04/21/2023 10:32 AM EST João spoke with patient and she reports that she is aware of most of the community social service resources. João notes that she does have [facility] Community Resource guide and JOÃO will mail guide to patient home for social service options. [facility] Miscellaneous Notes* Telephone Encounter - Laura Carl RN - 04/18/2023 10:15 AM EST 1st risk assessment form submitted 04/18/23 Laura Carl RN [facility] NoteHNO ID: [id number] Author: Tanna Manzo MD Service: ? Author Type: Physician Type: Progress Notes Filed: 04/16/2023 11:30 AM Note Text: OB point of care ultrasound was performed. See imaging tab for details. Tanna Bentley [facility]11-22-2023 History of Present illness Narrative* Tanna Manzo MD - 04/16/2023 11:30 AM EST OB point of care ultrasound was performed. See imaging tab for details. Tanna Bentley MD [facility] NoteHNO ID: [id number] Author: Sondra Plummer APRN.WILBERT Service: ? Author Type: Nurse Practitioner Type: Progress Notes Filed: 04/16/2023 11:46 AM Note Text: OB point of care ultrasound was performed. See imaging tab for details. INITIAL OB ASSESSMENT OB Provider: Jazmine Gaines MD HPI: Tashi is a 33 year old White here to establish Obstetrical Care. Patient's last menstrual period was 02/07/2023. from OB Dating Form. Cycles regular was unplanned but accepted Complaints: None OB History T1 L1 SAB0 IAB0 Ectopic0 Multiple0 Live Births1 Previous history: Prior : never History of 4th degree laceration: No History of shoulder dystocia: No History of Hypertensive disorders including pre-eclampsia, chronic hypertension or gestational hypertension: No History of gestational diabetes: No Patient's Risk Screening for delivery: Have you had a prior zhang between 20w and 36w6d?: No MEDICAL/PSYCHOSOCIAL HISTORY: History of hemorrhage or bleeding concerns: No Thyroid Disease: No History of chronic hypertension: No History of pre-existing diabetes: No No results found for: ABORHD BMI 29.57 kg/(m2) History of abnormal pap: No Prior treatment for cervical dysplasia: none. History of STDs: None Tobacco use: Yes, 1 pack of cigarettes per day Caffeine use: Yes mt dew- 2-3 cans a day Drug use: No Alcohol use: No Multivitamin with Folic acid: Yes Yazdanism or heritage: No Would refuse blood transfusion if medically necessary: No Are you currently employed? No Do you have any history of depression, anxiety, PTSD, eating disorders or other mood problems: Yes- anxiety and depression Do you have any safety concerns or history of traumatic events that you would like to discuss with your provider: No SDOH Screening: How often does this describe you? I don't have enough money to pay my bills: Very often Within the past 12 months, have you worried that your food would run out before you had money to buy more: Often In the past 12 months, has lack of reliable transportation kept you from going to medical appointments or work, or from keeping things needed for daily living: Never In the past 12 months, have you had any concerns about having a place to live, or about the condition or quality of your housing: Never Are there any cultural or spiritual needs we should be aware of: No Depression/Anxiety Screening: admits to symptoms of depression. OB Depression and Anxiety Screening- This Encounter (since 04/15/2023) Over the past 2 weeks have you felt down, depressed, or hopeless? Positive - Further Testing Indicated I have been able to laugh and see the funny side of things. As much as I always could I have looked forward with enjoyment to things. Rather less than I used to I have blamed myself unnecessarily when things went wrong. No, never I have been anxious or worried for no good reason. Yes, very often I have felt scared or panicky for no good reason. Yes, sometimes Things have been getting on top of me. No, most of the time I have coped quite well I have been so unhappy that I have had difficulty sleeping. Yes, sometimes I have felt sad or miserable. Not very often I have been so unhappy that I have been crying. Yes, quite often The thought of harming myself has occurred to me. Never [place] Depression Scale Total 12 Feeling nervous, anxious or on edge 3-Nearly every day Not being able to stop or control worrying 1-Several days Anxiety Pre-Screening Total (If >/= 3 additional questions will be reviewed) 4 Worrying too much about different things 2-More than half the days Trouble relaxing 0-Not al all Being so restless that it is hard to sit still 1-Several days Becoming easily annoyed or irritable 2-More than half the days Feeling afraid, as if something awful might happen 1-Several days Anxiety (MARY) Full Screening Total 10 Genetic Screening: Partner present: Yes Patient verbalized knowledge of partner family health history: No Do you or your partner have any personal or family history of defects not previously discussed: No Do you have history of a complicated by anomaly, genetic condition, or demise: No ACOG Recommended Screening Screening for early gestational diabetes testing: Criteria for early testing requires elevated BMI plus one other risk factor: BMI 29.57 kg/(m2) (risk factor if > than 25 or 23 in Americans) Additional risk factors: Women with polycystic ovarian syndrome She does meet ACOG criteria for early gestational DM screening. Screening for low dose aspirin use for the prevention of pre-eclampsia: Low dose aspirin should be considered if the patient has one high or two moderate risk factors: High risk factors: None Moderate risk ractors: None She does not meet crit (more content not included)...[facility]11-22-2023 Instructions* Patient Instructions* Sondra Plummer APRN.[facility] - 04/16/2023 9:13 AM EST Please select the following link to access the [facility] Your Guide to a Healthy . [email or web address] MORNING SICKNESS IN by Kaity Arndt M.D. for [employer] As you may already know, morning sickness can often be more appropriately called evening sickness or ckete-jmxruu-nu-the-day sickness. While there are the chalo few, most women (50-90%) experience some degree of nausea, some have vomiting, and a few develop a severe form of vomiting duringpregnancy called hyperemesis gravidarum. What causes the nausea and vomiting of ? We can't explain why some people feel fine and others are green for months. Even the same woman mayfeel vastly different in each . There is some relationship between nausea and the level ofthe hormone hCG. In twin pregnancies, and in other situations where the hCG is greater than expected, nausea and vomiting tend to be worse. In a destined for miscarriage, hCG levels tend to be low, and nausea is often less severe. This being said, a lack of nausea doesn't guarantee that the is destined for miscarriage. The fact that nausea and vomiting are often signs of a healthy can offer a silver lining in the dark cloud of miserable nausea. How long will the nausea last? Fortunately, for most women, nausea and vomiting are a first trimester event, peaking at week 9-10 and waning by week 14-16. When you are feeling bad the weeks can go by slowly but most momsdo feel tremendously better by the middle of the . Whether morning sickness is a brief experience or lasts through most of the , there are treatments that can make the weeks or months more tolerable. What can you do about it? Diet: See what works for you. Try eating bland dry foods, and avoid fatty or spicy foods. It is okay to eat a less than perfectly balanced diet in the first trimester. Have your liquids separately from dry foods. Try sports drinks, water, clear juices, Pepe-aid, or non-caffeinated tea. Avoid carbonated beverages that fill up your stomach. Try eating lots of little meals. If you tend to feel sick when you first wake up, leave crackers next to the bed for a quick snack before rising. Keeping healthy snacks with you all day to nibble when you feel queasy can sometimes even prevent nausea from starting. vitamins and nausea: Pre-stephenie vitamins can sometimes worsen nausea in . While folate is necessary, especially early in the , it comes as a smaller pill that many people find more tolerable than the complete vitamin pill. Ask your practitioner if it is okay to temporarilyreplace vitamins and iron with just a folate pill if you find a significant worsening in the level of your nausea from the vitamins. Alternative therapies: Acupressure may be used to treat nausea in , and is not known to have any risks for the fetus. Wristbands (marketed for seasickness) that put pressure on an acupressure point at the wrist are often available at drugstores or travel stores. Cesar root is used for nausea in many traditional cultures. Some women take fresh grated cesar or ecsar tablets. It is possible that the pill form contains other ingredients or contaminants, so you may want to try fresh cesar first. Medications: Emetrol is the only nausea medication approved for use in . It is available over the counter and is soothing to the stomach. A prescription medication called Bendectin was available in the -1979's and was shown to be safe in , but the company stopped marketing it in the [place] due to the costs of liability coverage. Bendectin contained 10 milligrams of vitamin B6 and 10 milligrams of Doxylamine. Two tablets were given at bedtime and a total of up to 4 tablets could be used in a 24-hour period. Interestingly, Unisom , which contains a higher dose (25 mg.) of the same medication, Doxylamine, is currently marketed as an yyaz-egb-pbneybs sleeping pill. Ask your practitioner if creating a vitamin B6/Doxylaminecombination with wwws-ylc-lyupyrm medications would be safe for you. Prescription medications like Compazine and Phenergan can be used if the benefits outweigh possiblerisks, but these have not been clearly shown to be safe in . Zofran , an expensive anti-nausea medication often used to treat nausea from chemotherapy, can also be used. Can I throw up so much it harms the baby? The act of vomiting cannot hurt your fetus, which is protected inside the uterus. If you get dehydrated or develop a metabolic imbalance, this can be unhealthy. As long as you can keep down liquids, you and your baby will generally do all right. Eat when you feel able. If you are unable to keep anyt andrew down, or if you notice potential signs of dehydration such as lightheadedness, or concentratedand/or infrequent urination, call your practitioner. Some women need brief hospital admission for intravenous fluids and anti-nausea medications if their condition becomes severe. This severe form ofnausea and vomiting is called Hyperemesis Gravidarum. As with many symptoms of , remind yourself that this, too, shall pass, and you'll have a wonderful baby to show for it! TREATMENT OPTIONS, SHORT VERSION: Frequent small meals Hydrate throughout day [employer] wrist pressure point applicators Cesar root (powdered, in capsules) 250mg four times a day Vitamin B6 25 mg tablet three times a day Also may be taken with half a tablet of Unisom three times a day (Doxylamine 12.5 mg) If severe (weight loss, dehydration), call us and come in for IV hydration and possible medication in the form of injections. Prescription medications such as Phenergan, Compazine, Reglan Marijuana (Cannabis) March 26, 2019 This sheet talks about exposure to marijuana in and while . This informationshould not take the place of medical care and advice from your health care provider. What is marijuana? Marijuana, also called pot, weed, or cannabis, is a drug that comes from a plant called cannabis. Marijuana can either be smoked (inhaled) or eaten (edibles). Marijuana is an illegal substance in parts of the [place]. However, some states allow marijuana use by prescription for medical purposes, and some states allow the sale of marijuana for recreational use. The main active chemical in marijuana is eyjyz-9-kjqvcshzcetvqfndabco (THC), which is what causes you to feel high. Another major component of marijuana is cannabidiol (CBD). The [place] Food and Drug Administration (FDA) advises against the use of CBD, THC, and marijuana in any form during a or while . What do we know about cannabidiol (CBD)? CBD use is becoming popular in [place] society and can be found in many products ranging from coffee and chocolate, to supplements and tinctures, cosmetics, lotions, suppositories, and bath salts. Studies on THC free products find that many actually contain a measurable amount of THC. Unfortunately there are no studies looking at the use of CBD during or while at this time. How much is known about the effects of marijuana on a ? It is difficult to study marijuana use during . Marijuana contains about 400 different chemicals, and some marijuana preparations can be contaminated with other drugs, pesticides, and/or fungi. Most of the older studies focus on women who inhale marijuana, not ingest (eat) it. Taking edibles might lead to higher levels of marijuana in the body. We also know that the THC in marijuana has become more potent (stronger) over the years. Therefore, studies done years ago on marijuana with lower THC levels may not accurately reflect the possible risks for current marijuana users. Some womenwho use marijuana during may have other risk factors such as use of alcohol, tobacco, or other drugs, medical conditions, and/or lack of care. Finally, information on the amount used and how much is used can be difficult for researchers to accurately collect. All of these factorsexplain why studies looking at marijuana use during sometimes find different results. I am using marijuana, but I would like to stop before becoming . How long could it stay in my body? People eliminate drugs at different rates. This is particularly true for marijuana and its metabolites (breakdown products). The way you use marijuana (inhale, ingest, topical) and how often you use it and how much you take can affect how long its metabolites can stay in your body. For some people,it might take up to 30 days for the THC metabolite to be gone from the body. I use marijuana. Can it make it harder for me to become ? Long-term use of marijuana might affect the menstrual cycle, which could make it more difficult to get . The effects on fertility appear to go away when marijuana use is stopped, or once a woman develops tolerance to the drug. Does using marijuana increase the risk for miscarriage? Miscarriage can occur in any . One study found that women who used marijuana were at an increased risk of having a miscarriage. Other studies have not confirmed this finding. Does using marijuana in the first trimester increase the chance of defects? In every , a woman starts with a 3-5% chance of having a baby with a defect. This iscalled her background risk. Most studies have not found an increase in the chance for defectsamong babies prenatally exposed to occasional marijuana use. A few studies have suggested a small increase in the chance for gastroschisis (a rare defect in which the infants intestines stick out of an opening in the abdominal wall). However, it can be difficult to draw conclusions from thesestudies because of the limitations outlined above. While most studies are reassuring regarding defects, without good studies among heavy marijuana users, the fact that marijuana is thought to be more potent now, and because of other potential complications it is best to avoid marijuana during . Could using marijuana in the second or third trimester cause other complications? Possibly. Similar to what is seen with cigarette smoking, smoking marijuana may increase carbon monoxide levels in the blood, which can decrease the amount of oxygen the baby receives. Some studies have suggested that among women who smoke marijuana regularly, there is an increased chance for complications such as premature , low weight, small length, small head size, and stillbirth. Babies that are born prematurely or with low weight can have higher rates of learningproblems or other disabilities. In some studies, a dose- response relationship was seen, meaning themore a woman smoked, the higher her risk for these complications to occur. More research is needed to confirm if these complications are caused by the marijuana use itself, or if the women in these studies may have had other risk factors (such as smoking cigarettes). Both THC and CBD might affect how the placenta works. The placenta is the organ that grows during apregnancy and controls what can pass from mother to baby and baby to mother. Studies have also shown that THC can cross the placenta during and reach the baby s system. If I smoke marijuana in the third trimester, can it cause my baby to go through withdrawal after ? Some newborns exposed to marijuana have been reported to have temporary withdrawal-like symptoms, such as increased tremors, changes in sleeping patterns, and crying. These symptoms usually go away within 30 days. Does using marijuana in cause long-term problems in behavior or learning for the baby? Possibly. Three studies have followed children prenatally exposed to marijuana, and found that theyare at higher risk for problems such as impaired executive functioning (the ability to plan, focus,remember, and multi task), impulsivity, hyperactivity, aggression, depression, and anxiety. These children were also more likely to have problems with attention (ability to pay attention), memory, and academic achievement. When these children reached adulthood, some studies suggest that they are more likely to misuse substances themselves. The problems noted here have been seen more often in children whose mothers were heavy marijuana users (smoked one or more marijuana cigarettes per day). Theevidence is not conclusive and some studies report conflicting results. What happens if I use marijuana when I m ? THC has been detected in breast milk. In one recent study, researchers found that breastfed babies ingest approximately 2.5% of the mother s THC dose. The amount of time THC remains in the milk ranges from 6 days to 6 weeks. Available research has not demonstrated clear health concerns except for apossible delay in motor development (learning to crawl and walk on time) when a woman reports smoking marijuana on a daily basis. Because the baby s brain continues to develop during the time that they are being breastfed, experts are worried about the possible effects this drug may have on a nursing when a mother uses it during . Other factors to consider are possible legal implications if a breastfed baby tests positive for marijuana, the fact that there may be other contaminants (mentioned above) in the marijuana, thereby exposing the breastfed baby to other substances, and the possibility that the baby will be directly exposed to second hand smoke. Most professional organizations such as the [place] [employer], the Academy of Medicine, and the [place] [employer] Gynec[employer] advise that mothers avoid using marijuana. Be sure to talk to your healthcare provider about all your questions. Because marijuana can affect prolactin (a hormone that tells your body to make milk), there is a concern that frequent marijuana users may see a negative effect on the quality and quantity of milk they produce. If a man uses marijuana could it affect his fertility (ability to get partner ) or increasethe chance for defects? In men, marijuana use may decrease sperm count (the number of sperm), and motility (the ability forthose sperm to reach the egg). These factors could make it more difficult for a man to get his partner . These effects are thought to be temporary, and sperm function is expected to return tonormal once a man stops using marijuana. In general, exposures that fathers have are unlikely to increase risks to a . For more information, please see the MotherToBaby fact sheet Paternal Exposures and at [email or web address]/fact-sheets/bsgvioan-xjcheosvj-gygecdlda/pdf/. From [facility]'s Tobacco Cessation website: Our comprehensive smoking cessation program contains three main modules. These modules include the following: One-on-one weekly 30-minute counseling sessions with a respiratory therapist. Education about the various nicotine replacement therapies and medications and alternative methods used for cessation. Guidance and support; plus, we will contact your physician to obtain any required prescriptions formedications related to cessation. Insurance is accepted for this six-week program. Please check with your provider about whether yourplan covers tobacco cessation programs. In the event your insurance provider does not cover your six-week smoking cessation program, we encourage you to contact us at your earliest convenience by calling [phone]. One of our friendly team members will be happy to help you with your financial plan. Contact [phone] for more information. [place] Tobacco Program Visit [email or web address]/en-[email or web address] or call 7-765-SLTI-NOW What is a Laboratory Administrative Director? Midwives in the [place] provide health care services to women of all ages.Laboratory Administrative Director means with woman. Midwives partner with women to help make important health decisions. Midwives work with othermembers of a woman s health care team when needed, but a tapper operator may also be your primary care provider. There are 3 main types of midwives, and there are some differences in the services offered by each type of tapper operator. What types of midwives are there? The 3 main types of midwives in the [place] are: Certified nurse-midwives (CNMs) Have a college degree in nursing and a master s degree in nurse-midwifery. CNMs are registered nurses (RNs) who have graduated from an accredited nurse- midwifery education programand passed a national certification exam. They must have a license to practice midwifery in the state where they work. CNMs work in all health care settings including hospitals, centers, and offices or clinics. CNMs provide general women s health care throughout a woman s lifetime, and they can prescribe most medications. Certified midwives (CMs) Are midwives with a bachelor s degree in a field other than nursing and a master s degree. They have the same midwifery education and pass the same national certification exam as CNMs. CMs must have a license to practice midwifery in the state where they work. CMs provide the same services and workin the same settings as CNMs. Certified professional midwives (CPMs) May have apprenticeship training, or they may graduate from an accredited formal education program.CPMs take a national certification exam that is not the same as the one CNMs and CMs take. The health care services providedbyCPMs are not as broad as those ofCNMsandCMs. CPMs provide , , andpostpartum care for women outside of the hospital--often in centers and homes. CPMs are not able to prescribe most medications, and they do notwork in hospitals. Most of the midwives in the [place] are CNMs. CNMs are licensed in all states. Not all states license CMs and CPMs. What do midwives do? All 3 types of midwives provide care towomen duringpregnancy, labor, , and the postpartumperiod.CNMs and CMs also provide general health services, annual checkups, contraception ( control),menopausal care, and treatment for common infections and health problems. CNMs and CMs care for about one of every 10 womenwho [facility] each [facility].Most of these births are in hospitals.All 3 typesof midwives care for women who have their babies in centers or at home, and CNMs and CMs alsowork in hospitals. Why would I choose a tapper operator for care during my ? Midwives view and as normal life events that can be a healthy time in your life. Midwives are experts in knowing the difference between normal changes that occur and symptoms that require extra attention. Midwives specialize in providing support and education in addition to regular health care. They use evidence-based medical procedures when there is a specific concern for the health of you or your baby, and they work in partnership with physicians who can be available if needed. Midwives offer health care that respects the goals and choices of each individual woman and family. What if I have a high-risk or complication during labor? Your CNM or CM can prescribe medicine, order tests, and provide treatment for common illnesses thatyou might get during . Midwives work with physicians who specialize in complications of . If you have a medical problem during or complication during labor, your tapper operator will work with a physician tomake sure you get the best and safest care for you and your baby.Midwives do not performsurgery. If you need to have a , the surgery will be done by the physician who works with yourmidwife. Your tapper operator will also work with other health care providers: nurses, social workers, chair caner, doulas, childbirth educators, physical therapists, and other specialists to help you get the care you need. What if I want pain medicine during labor? Your tapper operator will help you make decisions about how you are going to cope with your labor. If you want medicine to cope with pain during labor, your tapper operator can help you get medicine that is available in the setting where you give . Midwives also know other ways help women cope with labor suchas changing positions or being in a tub of water. These can be helpful in addition to pain medications. Questions to AskWhen Choosing a Laboratory Administrative Director for Your Care during and Questions to ask any tapper operator If you work in a group, who will attend my ? Who attends births for you when you are away? What kind of childbirth preparation do you recommend? Do you provide labor support and stay with women throughout labor? How do you feel about doulas or family and friends being with me during labor? Do you allow moving around and eating or drinking during labor? Can I hold my baby right after , breastfeed, and not be ? When do you recommend IVs, heart rate monitoring, Pitocin, or episiotomy? Do you care for women who want a vaginal after a previous ? How much do you charge? Is your care paid for by my insurance? Questions to ask midwives who attend births in homes and centers Am I eligible to give in this setting? What equipment and drugs do you have? How do you handle problems during labor? When would we go to the hospital? Which hospital will I go to if a problem occurs during labor? How will I get there? How often do women in your practice go to the hospital during labor? Do you have a formal agreement with a physician to provide care if problems occur? Would you stay with me if we go to the hospital? Are you trained in resuscitation? Will you visit me at home after my baby is born? For More Information OurMoment of Truth:What Is a Laboratory Administrative Director? http://www.Tech21mentofVitrinauth.com/Ucgc-hx-w-Laboratory Administrative Director Midwives [place] [facility]:What Is a Laboratory Administrative Director? http://katelyn.org/about-midwives/xaby-ji-t-tapper operator Childbirth Connection: Choosing a Caregiver http://www.childbirthconnection.org/article.asp?XihflyoYngm=336&hm=85446&area=27 Our Bodies, Ourselves: Choosing a Maternity Care Provider http://www.ourbodiesourselves.org/health-info/cenggvra-j-fylysywgw-care-provider / Please select the following link to access the [facility] Your Guide to a Healthy . www.Ccf.org/healthypregnancyguide Ondansetron (Zofran ) December 25, 2019 This sheet talks about exposure to ondansetron in a and while . This information should not take the place of medical care and advice from your healthcare provider. What is ondansetron? Ondansetron is a medication used to treat nausea and vomiting that may be caused by surgery, chemotherapy, or radiation therapy. Ondansetron has also been prescribed during to help with symptoms of nausea and vomiting in (NVP). NVP is also referred to as morning sickness . Ondansetron is taken by mouth, infused into a vein (by IV) or given by injection into a muscle (IM). Ondansetron is sold under the brand name Zofran . What can I do to help control my nausea and vomiting? Pumodo has a helpful fact sheet on nausea in with recommendations. You can review it here: https://MyStarAutograph.org/fact-sheets/mocuiv-qarbimht-izrstdihg-nvp/pdf/. Also, eating small meals often, drinking plenty of clear fluids, and avoiding triggers (such as odors, heat, and spicy or high fat foods) can help. Talk to your healthcare provider about which NVP treatments are right for you. I take ondansetron. Can it make it harder for me to become ? There are no studies that have looked to see if ondansetron could make it harder for a person to get . Studies in animals did not find that ondansetron would affect the ability to get . Does taking ondansetron increase the chance for miscarriage? Miscarriage can occur in any . One study did not find that miscarriage happened more oftenfor those who reported that they used ondansetron in the first trimester of . Does taking ondansetron increase the chance of defects? Every starts out with a 3-5% chance of having a defect. This is called the background risk. Most studies have found no increased chance for defects among thousands of people whoused ondansetron in the first trimester of . A few studies reported a very small (less than 1%) increase in the chance for a cleft palate (an opening in the roof of the mouth that may be repaired with surgery) or a heart defect. Because of other factors that could affect the pregnancies exposed to ondansetron, it is not known if ondansetron actually increases the chance of defects. Could taking ondansetron cause other complications? Studies did not find a higher chance of loss, delivery (delivery before 37 weeks of ), or low weight when ondansetron was used during . At higher doses, there have been reports that ondansetron use might cause a heart rhythm problem (called QT interval prolongation) in the person taking ondansetron. In severe cases, this could becomean abnormal heart rhythm known as Torsades de Pointes. If you are taking ondansetron, you can talk to your healthcare provider about how to watch for changes in your heart rhythm. Does taking ondansetron in cause long-term problems in behavior or learning for the baby? One study looked at 78 infants who were exposed to ondansetron at any time during . The infants were looked at between 7 days to 2 months of age and did not show any signs of unusual behaviors. A single follow-up survey for about 25 of these children was sent in by the parents. The children were between 1 to 5 years old. The survey asked about behavior. The surveys did not report behavior differences in these children compared to children who were not exposed ondansetron during . There are no other studies looking at the use of ondansetron in and long-term effects for the baby. Can I breastfeed while taking ondansetron? There have been no studies in humans looking at the use of ondansetron during . Studies in animals suggest that ondansetron enters breast milk, but the effects of ondansetron on a infant are not known. If ondansetron use is necessary, it is not usually a reason to stop . A different drug may be considered, especially while a or preterminfant. Be sure to talk to your healthcare provider about all your questions. I take ondansetron. Can it make it harder for me to get my partner or increase the chance of defects? There are no human studies looking at male use of ondansetron. Animal studies have not shown any effect on male fertility. In general, exposures that fathers and sperm donor have are unlikely to increase risks to a . For more information, please see the MotherToBaby fact sheet Paternal Exposures at https://mothertobaby.org/fact-sheets/vdvfaobs-dwskyssgi-aydhxleen/pdf/. Here are some links for wonderful Providers here in the community and surrounding areas. Do not hesitate to contact their offices, many are offering virtual visits during this time. 6-862-0-OBSD4KRMN - [place] Maternal Mental Health Hotline If you are in suicidal crisis, please call or text 6-441-308-TALK ( ) or visit the National Suicide Prevention Lifeline website. mchb.[facility] centera.gov [facility] Behavioral Health Psychology, Psychiatry, Counseling Connect with therapist/ can do virtual visits [phone] Referral to the [facility] To schedule an appointment, please call the [place] for Behavioral Health Appointment Line: [phone] option 1 Counseling Center - [address] [place], [id number] [address] [place] [address] [facility] [address] [place] [address] [facility] [address] [place], [place] [id number] Doug Gallego MD [address] [place] [address] [facility] [address] [facility], [address] [place] [address] [facility] Services [address] [place] [address] [facility] Counseling Services [place] / [place] [phone]/ [phone] Ernestina Roberts [address] [facility] [address] [facility] [phone] A[facility] of Counseling and Mediation Gary / [place] [phone] Behavioral health services of [facility] [address] [place] [address]/ [facility] [phone] Lizeth Myers, NITA, C[facility] Workshops, telehealth and at home visits. [phone] Humanistic counseling center 20 locations [facility], [place], [place], [place], [place], [place], [place], [place], [place], [place], [place], [place], [place], [place], [place], [place] ,[place], [place], [place],formerly [facility], [place], [place], [facility] [place], [place], [place] www.Alector [phone] Psychotherapy resources outside of [facility] are listed below [facility] Psychotherapy Web: https://www.Cantaloupe Systems/ Support International Online Provider Directory https://Oculus360/ [facility] Counseling https://India Orders/ Partners for Behavioral Health and Wellness Web: https://GenerationOne/ Ignis Energy Effective Living Web: https://DUNCAN & Todd/ LifeStance Web: https://qLearning/location/replaced by [facility] anson/[place]/ [facility] Web: https://www.[facility].org/ The Centers Web: https://Leto Solutions.org/ Recovery Resources Mental health and substance abuse help Web: https://Kartela.SilverStorm Technologiesstok tok tok & RESOURCES Support International Direct peer support and connection to professional resources Non-Emergency Helpline Phone: / Text: [phone] Web: https://www..net/ Online Provider Directory: https://Oculus360/ Online Support Meetings: https://www..net/get-help/gnp-tzdzov-sbndxyu-meetings/ OLU Baby and Zigzag Machine Operator Services Web: https://www51 Auto/ Pumodo Expert information on medication use during and Text: 500.820.5365 Web: https://Drexel University/ NATIONAL REGISTRY FOR PSYCHIATRIC MEDICATIONS Currently studying the safety of antidepressants, ADHD medications and atypical antipsychotics taken during TO PARTICIPATE CALL TOLL-FREE: Web: https://womensmentalhealth.org/research/pregnancyregistry/ Support Groups: [facility]- Follow on facebook Baby Bistro support group led by [facility] department Resilient Mamas - Support Group [facility].org The POEM support group [phone] Www.poemonline.org Follow on facebook - SALVATORE [facility] Online support meetings PSI https://www..net/get-help/utb-iavklc-pjkewku-meetings/ [facility] mommy and me virtual support group 11:30-1pm Support for mothers and new babies and toddlers Evarts childbirth education: Childbirth @cc.org or call [phone] CRISIS: CRISIS HOTLINE [phone], 911 or go to the nearest . [facility] [phone] / [facility] [phone] https://www.[facility].org Crisis text line text the word HOME to [phone] [facility] Counseling [address] [facility] [address] www.Avtal24 Rosalie Sanchez clinical counseling [address] [address] www.Desall [phone] [facility] psychotherapy Laura Barney [facility] STAFF ACCOUNTANT-S [address] [facility] www.PAX Global Technology [phone]/ [place] [phone] They all offer virtual. All work with trauma Support groups Online support meetings PSI https://www..net/get-help/lnq-ulepdg-jfnfwtm-meetings/ Here are the support groups they offer: Support of parents of 1 to 4 years old children POEM ( Outreach and Encouragement for Moms) offers free support for mothers experiencing depression, anxiety, and other mood and anxiety disorders. Masks are recommended but not required. No pre-registration required. Babies in arms welcome. meetings now take place on the and Friday of each month Location: Alexei Pacheco [facility] [address] [place] [address] Room 122 (library room) 7-8:00 p.m. When you enter the [facility] parking lot off of [address] the entrance door closest to our meeting room is on the front of the building toward the right. For those who are more comfortable with a virtual platform, ActiveO offers online support group options several days of the week. To register for an online group or to find out more about ActiveO, website at: https://iGrez LLCo.org/get-help/gouaueet-jvshna-czdnfa/poem-services/ offer a confidential helpline: private Facebook group is called SALVATORE [facility] Hospital[facility] Valentine Here are the groups they offer: Traumatic childbirth resources: Http://pattch.org/ https://www.Pacific DataVisionlatriceTheranos/ From [facility]'s Tobacco Cessation website: Our comprehensive smoking cessation program contains three main modules. These modules include the following: One-on-one weekly 30-minute counseling sessions with a respiratory therapist. Education about the various nicotine replacement therapies and medications and alternative methods used for cessation. Guidance and support; plus, we will contact your physician to obtain any required prescriptions formedications related to cessation. Insurance is accepted for this six-week program. Please check with your provider about whether yourplan covers tobacco cessation programs. In the event your insurance provider does not cover your six-week smoking cessation program, we encourage you to contact us at your earliest convenience by calling . One of our friendly team members will be happy to help you with your financial plan. Contact [phone] for more information. [place] Tobacco Program Visit https://[place].quitlogix.org/en-US/ or call 5-026-ATZD-NOW documented in this [facility] History of Present illness Narrative* Sondra Plummer APRN.CNP - 04/16/2023 9:00 AM EST OB point of care ultrasound was performed. See imaging tab for details. INITIAL OB ASSESSMENT OB Provider: Jazmine Gaines MD HPI: Tashi is a 33 year old White here to establish Obstetrical Care. Patient's last menstrual period was 02/07/2023. from OB Dating Form. Cycles regular was unplanned but accepted Complaints: None OB History T1 L1 SAB0 IAB0 Ectopic0 Multiple0 Live Births1 Previous history: Prior : never History of 4th degree laceration: No History of shoulder dystocia: No History of Hypertensive disorders including pre-eclampsia, chronic hypertension or gestational hypertension: No History of gestational diabetes: No Patient's Risk Screening for delivery: Have you had a prior zhang between 20w and 36w6d?: No MEDICAL/PSYCHOSOCIAL HISTORY: History of hemorrhage or bleeding concerns: No Thyroid Disease: No History of chronic hypertension: No History of pre-existing diabetes: No No results found for: ABORHD BMI 29.57 kg/(m^2) History of abnormal pap: No Prior treatment for cervical dysplasia: none. History of STDs: None Tobacco use: Yes, 1 pack of cigarettes per day Caffeine use: Yes mt dew- 2-3 cans a day Drug use: No Alcohol use: No Multivitamin with Folic acid: Yes Yazdanism or heritage: No Would refuse blood transfusion if medically necessary: No Are you currently employed? No Do you have any history of depression, anxiety, PTSD, eating disorders or other mood problems: Yes-anxiety and depression Do you have any safety concerns or history of traumatic events that you would like to discuss with your provider: No SDOH Screening: How often does this describe you? I don't have enough money to pay my bills: Very often Within the past 12 months, have you worried that your food would run out before you had money to buy more: Often In the past 12 months, has lack of reliable transportation kept you from going to medical appointments or work, or from keeping things needed for daily living: Never In the past 12 months, have you had any concerns about having a place to live, or about the condition or quality of your housing: Never Are there any cultural or spiritual needs we should be aware of: No Depression/Anxiety Screening: admits to symptoms of depression. OB Depression and Anxiety Screening- This Encounter (since 04/15/2023) Over the past 2 weeks have you felt down, depressed, or hopeless? Positive - Further Testing Indicated I have been able to laugh and see the funny side of things. As much as I always could I have looked forward with enjoyment to things. Rather less than I used to I have blamed myself unnecessarily when things went wrong. No, never I have been anxious or worried for no good reason. Yes, very often I have felt scared or panicky for no good reason. Yes, sometimes Things have been getting on top of me. No, most of the time I have coped quite well I have been so unhappy that I have had difficulty sleeping. Yes, sometimes I have felt sad or miserable. Not very often I have been so unhappy that I have been crying. Yes, quite often The thought of harming myself has occurred to me. Never [place] Depression Scale Total 12 Feeling nervous, anxious or on edge 3-Nearly every day Not being able to stop or control worrying 1-Several days Anxiety Pre-Screening Total (If >/= 3 additional questions will be reviewed) 4 Worrying too much about different things 2-More than half the days Trouble relaxing 0-Not al all Being so restless that it is hard to sit still 1-Several days Becoming easily annoyed or irritable 2-More than half the days Feeling afraid, as if something awful might happen 1-Several days Anxiety (MARY) Full Screening Total 10 Genetic Screening: Partner present: Yes Patient verbalized knowledge of partner family health history: No Do you or your partner have any personal or family history of defects not previously discussed: No Do you have history of a complicated by anomaly, genetic condition, or demise: No ACOG Recommended Screening Screening for early gestational diabetes testing: Criteria for early testing requires elevated BMI plus one other risk factor: BMI 29.57 kg/(m^2) (risk factor if > than 25 or 23 in Americans) Additional risk factors: Women with polycystic ovarian syndrome She does meet ACOG criteria for early gestational DM screening. Screening for low dose aspirin use for the prevention of pre-eclampsia: Low dose aspirin should be considered if the patient has one high or two moderate risk factors: High risk factors: None Moderate risk ractors: None She does not meet criteria for low dose ASA Marital Status:Single Partner: Name: Chuck Long Age: 26 Occupation: No Gender: Male History of STDs: None PAST MEDICAL HISTORY Diagnosis Date Anxiety 02/04/2018 Attention deficit hyperactivity disorder (ADHD) 02/04/2018 Irregular menstrual cycle Irregular periods Other acne PMH - PAST MEDICAL HISTORY OF Rt elbow fracture PMH - PAST MEDICAL HISTORY OF Left arm fracture Unspecified asthma(493.90) Vitamin D deficiency 05/05/2018 PAST SURGICAL HISTORY Procedure Laterality Date PAST SURGICAL HISTORY OF Mole removed from scalp PAST SURGICAL HISTORY OF Left 2006 ACL repair PAST SURGICAL HISTORY OF Right 2019 I&D Current Outpatient Medications Medication Sig Dispense Refill Xlpbpjqa-Ol-Yxn-Fe-FA tab Take 1 tablet by mouth once daily. 90 tablet 3 sertraline (ZOLOFT) 50 mg tablet Take 1 tablet by mouth once daily. 90 tablet 3 No current facility-administered medications for this visit. Allergies As of Date: 04/16/2023 (No Known Allergies) Fully Assessed 04/16/2023 Does patient have penicillin allergy: No REVIEW OF SYSTEMS: GENERAL: Negative for: Fever or Chills HEENT: Negative for: Impaired Vision, Ringing in Ears, Nosebleeds + headache NECK: Negative for: Swelling, Pain, Stiffness RESPIRATORY: Negative for: Cough, Shortness of breath, Wheezing GASTROINTESTINAL: Negative for: Heartburn, Constipation, Diarrhea, Blood in stool, + nausea and vomiting MUSCULOSKELETAL: Negative for: Muscle or joint pain, stiffness, Joint swelling NEUROLOGIC/PSYCHIATRIC: Negative for: Weakness, Paralysis, Numbness, Tingling, Tremor, Memory loss + anxiety and depression SKIN: Negative for: Rash, Itching GENITOURINARY: Negative for: vaginal itching, vaginal discharge, hematuria or dysuria PHYSICAL EXAM: Ht 5' 11 (1.80m) Wt 212 lb (96.2kg) LMP 02/07/2023 BMI 29.58 kg/(m^2). GENERAL: pleasant in no apparent distress DERMATOLOGY: Normal, without lesions, non-icteric, and non-hirsute NECK: Supple, full range of motion, no adenopathy, and thyroid normal CHEST: Normal inspiratory effort BREAST: soft, non-tender, symmetric, no dominant mass, normal nipple-areolar complex, no lymphadenopathy, and no nipple discharge ABDOMEN: soft, non-tender, and no masses NEURO: alert and oriented x3,exam grossly non-focal PELVIS: External genitalia normal without lesions. Perineal body intact. No vaginal or cervical lesions. Cervix closed. Uterus 7 week size. No adnexal masses or tenderness. Clinical Pelvimetry: Pelvimetry clinically assessed as adequate Limited OB ultrasound exam: single intrauterine and positive cardiac activity OB Risk Screening: Completed, no positive findings documented. ASSESSMENT: 33 year old at 9w5d wks gestational age PLAN: 1) Patient oriented to practice. Patient given new OB orientation folder. Discussed nutrition, folic acid supplementation, dietary guidelines, exercise, smoking, alcohol, caffeine, and drug use. Discussed gestational weight gain guidelines. Discussed routine OB labs including STD/HIV. Discussed how to access Your guide to a health and the Auto Parts Salesperson. Discussed aneuploidy and carrier screening. Regarding aneuploidy screening, nuchal translucency/first trimester early anatomy ultrasound and NIPT were discussed. Regarding carrier screening, the myriad screen was discussed. The risks/benefits and limitations of NIPT/aneuploidy screening were reviewed including the potential for false negative and false positive results. We discussed the availability of professional-society guided carrier screening and reviewed the conditions screened and limitations of screening. The availability of genetic counseling was reviewed. Information on aneuploidy/carrier screening was provided. The patient chooses: Aneuploidy screening: chooses to proceed with First trimester early anatomy ultrasound (12-13w6d) and NIPT (10 weeks) and Carrier screening: Accepts Discussed hemoglobin electrophoresis. Patient: Accepts Patient offered option of Virtual Visits. Patient unsure. May consider in future. Reviewed midwifery and social work case manager services that are available. ACTIVE PROBLEM LIST Supervision of Normal - 04/16/2023 Comment: care and precautions reviewed. With Uncertain Dates in First Trimester - 04/16/2023 Comment: Not confident about 1st day of LMP. POCUS not consistent with LMP. Planning for nuchal ultrasound - consider SANDRA change based on findings. 9 Weeks Gestation of - 04/16/2023 Comment: care and precautions reviewed. Wants [id number] - order once dating is confirmed. 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 Has not used since. History of Spontaneous , Currently - 04/16/2023 Comment: 1st Asthma - 04/16/2023 Comment: No Hemabate with delivery. Headache in First Trimester - 04/16/2023 Comment: Hydration encouraged. Consider Magnesium or Riboflavin. Nausea/Vomiting in - 04/16/2023 Comment: Vitamin B6 and Unisom doses reviewed. To notify if prescription is needed. Tobacco Smoking Complicating in First Trimester - 04/16/2023 Comment: Smokes a pack per day. Considering nicotine patch. Discussed importance of not smoking while using patch. Patient declines at this time, but will reconsider. Resources provided. Encouraged eliminating a cigarette each day. Breast Tenderness - 04/16/2023 Comment: Due to . Reviewed Tylenol only during for pain. Caffeine Use During in First Trimester - 04/16/2023 Comment: Drinking 2-3 cans of Mountain Dew per day. Reviewed sugar and caffeine intake amounts during . Recommend alternative options such as unsweetened tea. Food Insecurity - 04/16/2023 Comment: Social work consult placed. Depression - 04/10/2021 Comment: [place] score 12. Denies thoughts of self harm or harming others. Would like to restart Zoloft. Was on 200 mg prior, but stopped due to insurance coverage issues. 50 mg rx provided. Reviewed risks and benefits. Patient to go to ER with suicidal thoughts or thoughts of harming others. Discussed will likely take 4-6 weeks to notice full effect. Reviewed that symptoms can become worse before better. Declines counseling. Anxiety - 02/04/2018 Comment: MARY score 10. Pcos (Polycystic Ovarian Syndrome) - 05/05/2018 Comment: HgbA1c ordered with labs. Overweight (Bmi 25.0-29.9) - 02/04/2018 Comment: Pre BMI 29. Attention Deficit Hyperactivity Disorder (Adhd) - 02/04/2018 Comment: Does not have provider for this. Reports that she feels this is contributing to depression. Encouraged scheduling with PCP for evaluation and treatment. Follow up in 4 weeks or sooner prn for NT scan and OB visit. SANDRA may change based on NT scan. Sondra Plummer APRN.CNC MACHINE PROGRAMMER [facility] Note. MICRO - Microbiology PROCEDURE: Urine Culture [*1] SOURCE: Urine BODY SITE: COLLECTED DATE/TIME: 09/03/2021 02:52 EDT RECEIVED DATE/TIME: 09/03/2021 07:38 EDT START DATE/TIME: 09/03/2021 07:38 EDT FREE TEXT SOURCE: FINAL REPORTS Final Report [] Verified Date/Time/Personnel: 09/04/2021 14:20 EDT >100,000 cfu/ml Multiple bacterial morphotypes present. Probable Contamination. Suggest recollection if clinically indicated. Performing Locations *1: This test was performed at: [facility], [address] [place] [address], [phone] , Formerly [facility] ([place])09-03-2021 Evaluation + Plan note Diagnostic Tests Pending * Urine Culture 09/03/21 [facility] 04-11-2022 Hospital Discharge instructions Patient Education 09/03/2021 02:45:08 Bladder Infection, Female (Adult) Bladder Infection, Female (Adult) Urine is normally doesn't have any bacteria in it. But bacteria can get into the urinary tract fromthe skin around the rectum. Or they can travel in the blood from elsewhere in the body. Once they are in your urinary tract, they can cause infection in the urethra (urethritis), the bladder (cystitis), or the kidneys (pyelonephritis). The most common place for an infection is in the bladder. This is called a bladder infection. This is one of the most common infections in women. Most bladder infections are easily treated. They are not serious unless the infection spreads to the kidney. The phrases bladder infection, UTI, and cystitis are often used to describe the same thing. But they are not always the same. Cystitis is an inflammation of the bladder. The most common cause of cystitis is an infection. Symptoms The infection causes inflammation in the urethra and bladder. This causes many of the symptoms. Themost common symptoms of a bladder infection are: Pain or burning when urinating Having to urinate more often than usual Urgent need to urinate Only a small amount of urine comes out Blood in urine Abdominal discomfort. This is usually in the lower abdomen above the pubic bone. Cloudy urine Strong- or bad-smelling urine Unable to urinate (urinary retention) Unable to hold urine in (urinary incontinence) Fever Loss of appetite Confusion (in older adults) Causes Bladder infections are not contagious. You can't get one from someone else, from a toilet seat, or from sharing a bath. The most common cause of bladder infections is bacteria from the bowels. The bacteria get onto the skin around the opening of the urethra. From there, they can get into the urine and travel up to thebladder, causing inflammation and infection. This usually happens because of: Wiping improperly after urinating. Always wipe from front to back. Bowel incontinence Procedures such as having a catheter inserted Older age Not emptying your bladder. This can allow bacteria a chance to grow in your urine. Dehydration Constipation Sex Use of a diaphragm for control Treatment Bladder infections are diagnosed by a urine test. They are treated with antibiotics and usually clear up quickly without complications. Treatment helps prevent a more serious kidney infection. Medicines Medicines can help in the treatment of a bladder infection: Take antibiotics until they are used up, even if you feel better. It is important to finish them tomake sure the infection has cleared. You can use acetaminophen or ibuprofen for pain, fever, or discomfort, unless another medicine was prescribed. If you have chronic liver or kidney disease, talk with your healthcare provider before using these medicines. Also talk with your provider if you've ever had a stomach ulcer or gastrointestinal bleeding, or are taking blood-thinner medicines. If you are given phenazopydridine to reduce burning with urination, it will cause your urine to become a bright orange color. This can stain clothing. Care and prevention These self-care steps can help prevent future infections: Drink plenty of fluids to prevent dehydration and flush out your bladder. Do this unless you must restrict fluids for other health reasons, or your doctor told you not to. Proper cleaning after going to the bathroom is important. Wipe from front to back after using the toilet to prevent the spread of bacteria. Urinate more often. Don't try to hold urine in for a long time. Wear loose-fitting clothes and cotton underwear. Avoid tight-fitting pants. Improve your diet and prevent constipation. Eat more fresh fruit and vegetables, and fiber, and less junk and fatty foods. Avoid sex until your symptoms are gone. Avoid caffeine, alcohol, and spicy foods. These can irritate your bladder. Urinate right after intercourse to flush out your bladder. If you use control pills and have frequent bladder infections, discuss it with your doctor. Follow-up care Call your healthcare provider if all symptoms are not gone after 3 days of treatment. This is especially important if you have repeat infections. If a culture was done, you will be told if your treatment needs to be changed. If directed, you cancall to find out the results. If X-rays were done, you will be told if the results will affect your treatment. Call 911 Call 911 if any of the following occur: Trouble breathing Hard to wake up or confusion Fainting or loss of consciousness Rapid heart rate When to seek medical advice Call your healthcare provider right away if any of these occur: Fever of 100.4 F (38.0 C) or higher, or as directed by your healthcare provider Symptoms are not better by the third day of treatment Back or belly (abdominal) pain that gets worse Repeated vomiting, or unable to keep medicine down Weakness or dizziness Vaginal discharge Pain, redness, or swelling in the outer vaginal area (labia) [id number] [employer]. [address] [place] [address]. All rights reserved. This information is not intended as a substitute for professional medical care. Always follow yourhealthcare professional's instructions. Follow Up Care 09/03/2021 01:38:36 With:Follow up with primary care provider Address:Unknown When:2-4 days [facility] 01-10-2022 Hospital Discharge instructions Patient Education 06/04/2021 11:59:20 Detached Fingernail or Toenail Detached Fingernail or Toenail A detached nail is when the nail becomes from the area underneath it (the nail bed). Thisoften means losing all or part of the nail. An injury to your finger or toe is often the cause. It can also be caused by an infection or other skin diseases around or under the nail. Sometimes there is a cut in the nail bed or a bone fracture under the nail. In most cases, the nailwill grow back from the area under the cuticle (the matrix). A fingernail takes about 4 to 6 monthsto grow back. A toenail takes about 12 months to grow back. If the nail bed or matrix was damaged, the nail may grow back with a rough or abnormal shape. In some cases the nail may not grow back at all. There may be damage or a cut to the nail bed. This may need to be repaired. Often this is done withstitches. If the nail is still in good condition, it might be cleaned and trimmed, then put back inplace. This is done to help and protect the new nail as it grows back. It also prevents the nail bed from drying out. Home care Keep the injured part raised to reduce pain and swelling. This is important, especially in the first 48 hours. Apply an ice pack for up to 20 minutes. Do this every 3 to 6 hours during the first 24 to 48 hours.Keep using ice packs to ease pain and swelling as needed. To make an ice pack, put ice cubes in a plastic bag that seals at the top. Wrap the bag in a clean, thin towel or cloth. Never put ice or an ice pack directly on the skin. The ice pack can be put right on a wrap, cast, or splint. As the ice melts, be careful not to get any wrap, cast, or splint wet. The nail bed is moist, soft, and sensitive. It needs to be protected from injury for the first 7 to10 days until it dries out and becomes hard. Keep it covered with a nonstick dressing or a bandage without adhesive. When a dressing is placed on an exposed nail bed, it may stick and be hard to remove if left in place more than 24 hours. Unless you were told otherwise, change dressings every 24 hours. If needed, soak the dressing off while holding it under warm running water. Then lightly pat the wound dry. Apply a layer of antibiotic ointment before putting on the new dressing or bandage. This will help keep it from sticking. Use a nonstick dressing with the antibiotic ointment under the outer dressing. If an X-ray showed that you have a fracture, it will take about 4 weeks for this to heal. The injured part should be protected with a splint or tape while it is healing. If you were given antibiotics to prevent infection, take them as directed until they are all gone. Medicine You can take aqee-kvz-seqglxv medicine for pain, unless you were given a different pain medicine touse. Talk with your provider before using these medicines if you have chronic liver or kidney disease. Also talk with your provider if you ever had a stomach ulcer or GI bleeding, or are taking blood thinner medicines. If you were given antibiotics, take them until they are done. It is important to finish the antibiotics even if the wound looks better. This is to make sure the infection has cleared. Follow-up care Follow up with your healthcare provider, or as advised. If X-rays were taken, you will be told of any new findings that may affect your care. When to seek medical advice Call your healthcare provider right away if any of these occur: Pain or swelling increases Redness around the nail Pus (creamy white or yellow fluid) draining from the nail Fever of 100.4 F (38 C) or higher, or as directed by your provider [phone] [employer]. [address] [place] [address], [place] [address]. All rights reserved. This information is not intended as a substitute for professional medical care. Always follow yourhealthcare professional's instructions. Follow Up Care 06/04/2021 11:15:28 With:JUAN A ISRAEL MD Address: [address] [place], [place] [id number]- When:2-4 days [facility] 12-11-2018 History of Past illness Narrative* Problem Noted Date Diagnosed Date Resolved Date Vitamin D deficiency 05/05/2018 021 documented as of this encounter (statuses as of 04/16/2023) [facility] of Past illness Narrative* Problem Noted Date Diagnosed Date Resolved Date Vitamin D deficiency 05/05/2018 021 documented as of this encounter (statuses as of 04/16/2023) [facility]12-[facility] History of Past illness Narrative* Problem Noted Date Diagnosed Date Resolved Date Vitamin D deficiency 05/05/2018 021 documented as of this encounter (statuses as of 04/18/2023) [facility] History of Past illness Narrative* Problem Noted Date Diagnosed Date Resolved Date Vitamin D deficiency 05/05/2018 021 documented as of this encounter (statuses as of 04/23/2023) [facility] History of Past illness Narrative* Problem Noted Date Diagnosed Date Resolved Date Vitamin D deficiency 05/05/2018 021 documented as of this encounter (statuses as of 07/02/2023) [facility] + Plan note No data available for this section [facility] Evaluation note* Diagnosis with uncertain dates in first trimester- Primary documented in this encounter [facility] note* Diagnosis Encounter for supervision of other normal in first trimester- Primary 9 weeks gestation of state, incidental History of drug use History of spontaneous , currently with history of PCOS (polycystic ovarian syndrome) Polycystic ovaries with uncertain dates in first trimester Anxiety Anxiety state, unspecified Cervical cancer screening Screening for malignant neoplasm of the cervix Depression, unspecified depression type headache in first trimester Nausea/vomiting in Unspecified vomiting of , unspecified as to episode of care Breast tenderness Mastodynia Tobacco smoking complicating in first trimester Tobacco use disorder complicating , childbirth, or the puerperium, antepartum condition or complication Attention deficit hyperactivity disorder (ADHD), unspecified ADHD type Overweight (BMI 25.0-29.9) Overweight Caffeine use during in first trimester Food insecurity documented in this encounter [facility] note* Diagnosis Encounter for supervision of normal first in second trimester- Primary Supervision of normal first 18 weeks gestation of state, incidental Overweight (BMI 25.0-29.9) Overweight Generalized abdominal pain Abdominal pain, generalized Constipation, unspecified constipation type documented in this encounter 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 [address] [facility] [address] [place] [address] [place] [address] Referral ID Status Reason Start Date Expiration Date Visits Requested Visits Authorized [id number] Pending Review Auto-Generat ed Referral 3 04/15/2024 [address] [facility] Summary Purpose Family History No Family History Records FoundNo Family History Records FoundNo Family History Records FoundNo Family History Records FoundNo Family History Records FoundNo Family History Records FoundNo Family History Records FoundNo Family History Records FoundNo Family History Records Found Advance Directives No Advanced Directives Records FoundNo Advanced Directives Records FoundNo Advanced Directives Records FoundNo Advanced Directives Records FoundNo Advanced Directives Records FoundNo Advanced Directives Records FoundNo Advanced Directives Records FoundNo Advanced Directives Records FoundNo Advanced Directives Records Found Health Concerns Problem Noted Date Diagnosed Date [facility] - [facility] 04/16/2023 [place] - [place] 04/16/2023 Problem Noted Date Diagnosed Date [facility] - [facility] 04/16/2023 Education - [place] 04/16/2023 Problem Noted Date Diagnosed Date [facility] - [facility] 04/16/2023 Education - [place] 04/16/2023 Problem Noted Date Diagnosed Date [facility] - [facility] 04/16/2023 Education - [place] 04/16/2023 Problem Noted Date Diagnosed Date [facility] - [facility] 04/16/2023 Education - [place] 04/16/2023 Additional Source Comments INFORMATION SOURCE (unrecogn ized section and content) DATE CREATED AUTHOR AUTHOR'S ORGANIZ ATION 11/02/2018 [facility] DATE CREATED AUTHOR AUTHOR'S ORGANIZ ATION 08/05/2020 [facility] DATE CREATED AUTHOR AUTHOR'S ORGANIZ ATION 08/20/2020 [facility] DATE CREATED AUTHOR AUTHOR'S ORGANIZ ATION 12/08/[address] [facility] DATE CREATED AUTHOR AUTHOR'S ORGANIZ ATION [facility]20[facility] DATE CREATED AUTHOR AUTHOR'S ORGANIZ ATION 09/24/2021 [facility] ([place] DATE CREATED AUTHOR AUTHOR'S ORGANIZ ATION 06/01/2023 [facility] DATE CREATED AUTHOR AUTHOR'S ORGANIZ ATION 07/03/2023 [facility] Care Team (unrecognized sect ion and content) Questioned Documents Examiner Relationship Specialty Start Date End Date Danilo Avila MD [address] [place] [address] PCP - General Internal Medicine 04/10/21 Questioned Documents Examiner Relationship Specialty Start Date End Date Danilo Avila MD [address] [place], [place] [id number] PCP - General Internal Medicine 04/10/21 Questioned Documents Examiner Relationship Specialty Start Date End Date Danilo Avila MD [address] [place], [place] [id number] PCP - General Internal Medicine 04/10/21 Questioned Documents Examiner Relationship Specialty Start Date End Date No, Physician [facility] PCP - General 05/31/23 Questioned Documents Examiner Relationship Specialty Start Date End Date Danilo Avila MD [address] [place], [place] [id number] PCP - General Internal Medicine 04/10/21 Source Comments (unrecognize d section and content) In the event this informatio n is protected by the Federal Confidentiality of Alcohol and Drug Abuse Patient Records regulations: The Federal rules restrict any use of the information to criminally investigate or prosecute any alcohol or drug abuse patient.[facility] the event this information is protected by the Federal Confidentiality of Alcohol and Drug Abuse Patient Records regulations: The Federal rules restrict any use of the information to criminally investigate or prosecute any alcohol or drug abuse patient.[facility] the event this information is protected by the Federal Confidentiality of Alcohol and Drug Abuse Patient Records regulations: The Federal rules restrict any use of the information to criminally investigate or prosecute any alcohol or drug abuse patient.[facility] Hospital[facility] the event this information is protected by the Federal Confidentiality of Alcohol and Drug Abuse Patient Records regulations: The Federal rules restrict any use of the information to criminally investigate or prosecute any alcohol or drug abuse patient.[facility] the event this information is protected by the Federal Confidentiality of Alcohol and Drug Abuse Patient Records regulations: The Federal rules restrict any use of the information to criminally investigate or prosecute any alcohol or drug abuse patient.[facility] Reason for Visit (unrecogniz ed section and content) Reason Comments PRAF Reason Comments Preg test Needs a paper for re hab stating she is to go into treatment, wants zofran as well for morning sickness Reason Onset Date Comments Care 07/02/2023 FOR RECORDS PERTAINING TO PATIENTS WHO ARE OR HAVE BEEN ENROLLED IN A CHEMICAL DEPENDENCY/SUBSTANCEABUSE PROGRAM, SOME INFORMATION MAY BE OMITTED. This clinical summary was aggregated from multiple sources. Caution should be exercised in using it in the provision of clinical care. This summary normalizes information from multiple sources, and as a consequence, information in this document may materially change the coding, format and clinical context of patient data. In addition, data may be omitted in some cases. CLINICAL DECISIONS SHOULD BE BASED ON THE PRIMARY CLINICAL RECORDS. [facility]. provides no warranty or guarantee of the accuracy or completeness of information in this document.
[2023-07-06] MEDS: Amox/Clavulanate 875 MG Tablet PO (22:46)
[2023-07-06 22:56] VITALS: BP 113/74; PULSE 105; RESP 16; TEMP 36.6; O2SAT 98
--- NOTE | 2023-07-07 00:09 | EDS_ITS ---
HPI History of Present Illness Chief Complaint: Syncope Informant: patient Narrative Narrative: Patient presents with syncope and dog bite. This patient's young child was bitten by a dog at their house. She intervened pulled the dog off the child and got bit herself. The child was seen here. He has significant injuries to his face. She was very distraught about this which is certainly fully understandable. She was hyperventilating. She was stepping out of the room to get some air she got lightheaded and started to fall. She was caught by staff. She never actually lost consciousness. She did not hit hard nor did she hit her head or abdomen. When I see her she states that she needs an ultrasound of her abdomen and she thinks care [facility] would cover that. But she denies any abdominal symptoms. She is 19 weeks at this time. She states she is overall been doing well. She thinks her tetanus is up-to-date but is not sure. PFSH [facility] Medical History ADHD (attention deficit hyperactivity disorder) Anxiety Depression History of drug use Marginal insertion of umbilical cord Methamphetamine abuse in remission PCOS (polycystic ovarian syndrome) SAB (spontaneous ) Tetrahydrocannabinol (THC) use disorder, mild, abuse Home Medications amoxicillin 875 mg-potassium clavulanate 125 mg tablet 1 tab PO BID #14 tabs 07/06/23 [Rx Last Taken Unknown] sertraline 50 mg tablet 50 mg PO DAILY 07/06/23 [History Last Taken Unknown] Allergy/AdvReac Type Severity Reaction Status Date / Time No Known Allergies Allergy Verified 07/06/23 22:24 Family History Grandfather CVA (cerebral vascular accident) Heart disease Cancer Grandmother CVA (cerebral vascular accident) Diabetes Grandfather Cancer Diabetes Grandmother Diabetes Surgical History H/O elbow surgery S/P ACL reconstruction Social History number of children: 0 Smoking Status: Current every day smoker tobacco type: cigarettes ROS ROS ED Constitutional Constitutional ED: Denies chills or fever(s) Eyes Eyes: Denies change in vision ENT ENT ED: Denies rhinorrhea Cardiovascular Cardiovascular: Denies chest pain or palpitations Respiratory/Chest Respiratory/Chest: Denies cough or dyspnea Gastrointestinal Gastrointestinal: Denies abdominal pain, diarrhea, nausea or vomiting Genitourinary Genitourinary ED: Reports other Details: Currently 19 weeks . No abdominal pain or cramping. ; Denies dysuria, hematuria or urinary frequency Musculoskeletal Musculoskeletal: Denies myalgias Integumentary Denies rash Neurologic Neurologic: Denies headache(s), paresthesias or weakness Psychiatric Psychiatric: Reports anxiety Hematologic/Lymphatic Hematologic/Lymphatic: Denies easy bleeding or easy bruising Allergic/Immunologic Allergic/Immunologic ED: Denies urticaria EXAM Physical Exam Narrative Exam Narrative: General: Patient is awake alert. She is very anxious. She is certainly had a rough night for her mother. HEENT: No sign of trauma or injury. Mucous membranes are moist. Neck is supple. No pain with range of motion Lungs are clear. No chest wall tenderness. Saturations are normal at 97-98% on room air while I am in the room. Heart is regular. Rate of about 100. I think some of this is due to the anxiet y. There is normal pulses distally. Abdomen is gravid but completely nontender. We were able to get heart tones that range about 125-130/135. Back: No cervical thoracic or lumbar tenderness. Extremities: There are lacerations on the dorsum of the hand. There is about a 1 cm area about a 2 cm area. There appears to be a more complex laceration of the volar surface of her palm. But the patient is extremely anxious and cannot see blood. She states if we do not wrap up her hand again she will pass out. I explained that we need to clean the hand. But we will wrap it until we can get it cleaned. I need to get a better look at these injuries. I am not getting any difficulty moving the fingers but it is very hard to get her to focus and move individually as requested. No obvious sensory changes. There is no active bleeding from any areas. Const Vital Signs: 07/06/23 22:17 07/06/23 22:17 07/06/23 22:56 Temperature 97.5 F L 98 F Temperature Source Temporal Pulse Rate 105 H 105 H Respiratory Rate 14 16 Respiratory Effort Normal Non-Labored Blood Pressure 113/74 113/74 Blood Pressure Mean 87 87 Pulse Ox 95 98 Oxygen Delivery Method Room Air MDM MDM MDM Narrative Medical decision making narrative: Patient was insisting on getting ultrasound of her abdomen. I explained that I do not think that is needed but if she wants that done I am happy to order it. I did tell her that if we order the ultrasound she would have to stay here and we would not be able to get it done before the ambulance ride for her son is here as that ambulance is only about 20 minutes away. At that point she stated there is no way she is going to get an ultrasound because she is going with her son no matter what. I explained that we would like to do imaging of the hand and cleaning of the hand and further evaluation to see the extent of injury. She does not want to have this done and she wants to go with her child. That is understandable but she needs to take care of herself also. I am working to get at least a dose of Augmentin and prescription for her. I have encouraged her to seek treatment. She has the capacity to make her own decisions and is competent to leave even AGAINST MEDICAL ADVICE. Discharge Plan Triage Chief Complaint: Syncope ED Provider: Dawit Mcghee Dx/Rx/DC Orders Clinical Impression: Dog bite of right hand, Syncope Instructions: ED Dog Bite, ED Fainting, Uncertain Cause Prescriptions: New amoxicillin-pot clavulanate 875-125 mg tablet 1 tab PO BID Qty: 14 0RF No Action sertraline 50 mg tablet 50 mg PO DAILY Patient Comments: TAKE 1 TABLET BY MOUTH EVERY DAY Primary Care Provider: Care Physician,No Primary Referrals: Care Physician,No Primary [Primary Care Provider] - Activity Restrictions/Additional Instructions: Follow-up with your primary physician and [employer] physician as soon as possible. Disposition Disposition: Against Medical Advice Discharge Date/Time: 07/06/23 22:57
== END 2023-07-06 22:57 | disposition left against medical advice (07) ==
PROVIDERS: Emergency Provider Emergency Medicine; Visit Provider Emergency Medicine
DX: O9A.212 Injury, poisoning and certain other consequences of external causes complicating pregnancy, second trimester (principal); S61.451A Open bite of right hand, initial encounter; W54.0XXA Bitten by dog, initial encounter; Y93.89 Activity, other specified; Y99.8 Other external cause status; Y92.019 Unspecified place in single-family (private) house as the place of occurrence of the external cause; O99.891 Other specified diseases and conditions complicating pregnancy; R55 Syncope and collapse; O99.332 Smoking (tobacco) complicating pregnancy, second trimester; F17.210 Nicotine dependence, cigarettes, uncomplicated; Z3A.19 19 weeks gestation of pregnancy; Z53.29 Procedure and treatment not carried out because of patient's decision for other reasons
CPT/HCPCS: 99282

== ENCOUNTER 2023-11-04 15:57 | Outpatient (CLI) | payer MEDICAID, SELFPAY ==
[2023-11-04] VITALS (10 sets, daily range): BP systolic 135–144; BP diastolic 87–96; PULSE 74–94; RESP 16; TEMP 36.4; O2SAT 96–100; BMI 35.1
[2023-11-04 16:59] LABS: ROM Internal Control Test YES-OK TO RESULT pt. (Internal QC); ROM Patient Test Negative (Negative); Record Kit Lot#, ROM+ K1866
[2023-11-04 17:44] LABS: Hematocrit 37.7 % (37-47); Hemoglobin 12.3 g/dL (12.0-15.0); Mean Corp Hgb Conc 32.6 g/dL (32-36); Mean Corpuscular Hgb 26.3 pg (27.0-32.0); Mean Corpuscular Volume 80.7 fL (81-99); Mean Platelet Vol. 8.9 fl (6.2-12.0); Platelet Count 388 K/mm3 (150-450); RBC Distribution Width CV 13.6 % (11.6-14.6); RBC Distribution Width SD 39.7 fl (35.1-43.9); Red Blood Count 4.67 M/mm3 (4.2-5.4); White Blood Count 10.6 K/mm3 (4.4-11.0)
[2023-11-04 17:58] LABS: Protein, Urine (Random) 15.3 mg/dL (<11.9); Protein:Creat Ratio 118 mg/g CRE (0-200)
[2023-11-04 18:00] LABS: AST(SGOT) 16 U/L (15-37); Alanine Aminotransfer ALT/SGPT 16 U/L (13-56); EST Glomerular Filtration Rate 123 mL/min (>60); Est Glom Filt Rate - Afr Amer 149 mL/min (>60); Estimated Creatinine Clearance 185.69 ml/min
--- NOTE | 2023-11-07 08:55 | OB.TRI.HP_ITS ---
HPI - General General Date of Service: 11/04/23 HPI Narrative TASHI ABRAHAM, is a 33 F who presents with possible LOF. Maternal Data Information Final SANDRA: [birth year] Gestational age: 39 weeks [facility] Medical History (Updated 11/07/23 @ 08:[address] Jazmine Gaines MD) Injury of left middle finger Right hand pain PCOS (polycystic ovarian syndrome) History of drug use Tetrahydrocannabinol (THC) use disorder, mild, abuse Methamphetamine abuse in remission Depression Anxiety ADHD (attention deficit hyperactivity disorder) Marginal insertion of umbilical cord SAB (spontaneous ) Home Medications ?Medication ?Instructions ?Recorded ?Last Taken ?Type sertraline 50 mg tablet 50 mg PO 11/04/23 11/03/23 06:00 History Allergy/AdvReac Type Severity Reaction Status Date / Time No Known Allergies Allergy Verified 11/04/23 16:25 Family History Grandfather CVA (cerebral vascular accident) Heart disease Cancer Grandmother CVA (cerebral vascular accident) Diabetes Grandfather Cancer Diabetes Grandmother Diabetes Surgical History H/O elbow surgery S/P ACL reconstruction Social History number of children: 0 Smoking Status: Current every day smoker tobacco type: cigarettes History 2 Elective abortions 0 Hx Para 0 Spontaneous abortions 1 Hx # Term Pregnancies 0 Ectopic pregnancies 0 Hx # Pregnancies 0 Multiple births 0 # of living children 0 NST FHR Rate Baby A Baseline: 145 Variability:: Moderate Accelerations:: 15 x 15 Decelerations:: Variable NST Reactive:: Yes Uterine Activity:: quiet Assessment & Plan (1) Threatened labor: QUALIFIERS: Trimester: third trimester Qualified Code(s): O47.03 - False labor before 37 completed weeks of gestation, third trimester PLAN: Plan Reactive NST
== END 2023-11-04 18:28 | disposition home or self-care (01) ==
LOC: WPOUT 15:58 → WP 15:59
PROVIDERS: Obstetrics & Gynecology; Referring Provider Obstetrics & Gynecology; Visit Provider Obstetrics & Gynecology
DX: O47.03 False labor before 37 completed weeks of gestation, third trimester (principal); O99.333 Smoking (tobacco) complicating pregnancy, third trimester; F17.200 Nicotine dependence, unspecified, uncomplicated; Z3A.39 39 weeks gestation of pregnancy
CPT/HCPCS: 36415; 59050; 82565; 82570; 84112; 84156; 84450; 84460; 84550; 85027; 99221; G0378

== ENCOUNTER 2023-11-09 17:27 | Outpatient (CLI) | payer MEDICAID, SELFPAY ==
[2023-11-09] VITALS (71 sets, daily range): BP systolic 141–162; BP diastolic 86–113; PULSE 85–143; RESP 16–18; TEMP 36.1–37.2; O2SAT 81–100
[2023-11-09 18:00] LABS: Hematocrit 35.3 % (37-47); Hemoglobin 11.4 g/dL (12.0-15.0); Mean Corp Hgb Conc 32.3 g/dL (32-36); Mean Corpuscular Volume 80.6 fL (81-99); Platelet Count 368 K/mm3 (150-450); RBC Distribution Width CV 13.7 % (11.6-14.6); RBC Distribution Width SD 39.6 fl (35.1-43.9); Red Blood Count 4.38 M/mm3 (4.2-5.4); White Blood Count 11.7 K/mm3 (4.4-11.0)
--- NOTE | 2023-11-09 18:20 | PCM.HP.OB ---
HPI - General General Date of Service: 11/09/23 Chief Complaint: Headache and elevated BP HPI Narrative TASHI ABRAHAM, is a 33 F who presents with headache and some blurry vision. Also she had her BP checked and it was elevated. Maternal Data Information Final SANDRA: [birth year] Gestational age: 37&2 [facility] Medical History Injury of left middle finger Right hand pain PCOS (polycystic ovarian syndrome) History of drug use Tetrahydrocannabinol (THC) use disorder, mild, abuse Methamphetamine abuse in remission Depression Anxiety ADHD (attention deficit hyperactivity disorder) Marginal insertion of umbilical cord SAB (spontaneous ) Home Medications ?Medication ?Instructions ?Recorded ?Last Taken ?Type sertraline 50 mg tablet 50 mg PO DAILY anxiety/depression 11/04/23 11/03/23 06:00 History vit no.95-ferrous 1 tab PO DAILY 11/09/23 Unknown History fumarate 28 mg-folic acid 800 mcg tablet () Allergy/AdvReac Type Severity Reaction Status Date / Time No Known Allergies Allergy Verified 11/09/23 18:01 Family History Grandfather CVA (cerebral vascular accident) Heart disease Cancer Grandmother CVA (cerebral vascular accident) Diabetes Grandfather Cancer Diabetes Grandmother Diabetes Surgical History H/O elbow surgery S/P ACL reconstruction Social History number of children: 0 Smoking Status: Current every day smoker tobacco type: cigarettes History 2 Elective abortions 0 Hx Para 0 Spontaneous abortions 1 Hx # Term Pregnancies 0 Ectopic pregnancies 0 Hx # Pregnancies 0 Multiple births 0 # of living children 0 NST FHR Rate Baby A Baseline: 135 Variability:: Moderate Accelerations:: None Decelerations:: None Uterine Activity:: quiet Vital Signs Vital Signs Vital Signs: 11/09/23 17:34 11/09/23 17:34 11/09/23 17:34 Temperature Temperature Source Temporal Pulse Rate 96 Respiratory Rate Blood Pressure 156/99 H BP Systolic 156 BP Diastolic 99 Pulse Ox 11/09/23 17:34 11/09/23 17:34 11/09/23 17:34 Temperature Temperature Source Pulse Rate 113 H Respiratory Rate 16 Blood Pressure BP Systolic BP Diastolic Pulse Ox 98 11/09/23 17:34 11/09/23 17:36 11/09/23 17:36 Temperature 99.0 F Temperature Source Pulse Rate 110 H Respiratory Rate Blood Pressure BP Systolic BP Diastolic Pulse Ox 98 11/09/23 17:41 11/09/23 17:41 11/09/23 17:48 Temperature Temperature Source Pulse Rate 101 H Respiratory Rate Blood Pressure 160/104 H BP Systolic 160 BP Diastolic 104 Pulse Ox 98 11/09/23 17:48 11/09/23 17:48 11/09/23 17:53 Temperature Temperature Source Pulse Rate 90 Respiratory Rate Blood Pressure 151/99 H BP Systolic 151 BP Diastolic 99 Pulse Ox 100 11/09/23 17:53 11/09/23 18:03 11/09/23 18:03 Temperature Temperature Source Pulse Rate 101 H 109 H Respiratory Rate Blood Pressure 149/101 H BP Systolic 149 BP Diastolic 101 Pulse Ox 11/09/23 18:09 11/09/23 18:09 11/09/23 18:14 Temperature Temperature Source Pulse Rate 108 H 93 Respiratory Rate Blood Pressure BP Systolic BP Diastolic Pulse Ox 97 11/09/23 18:14 11/09/23 18:15 11/09/23 18:15 Temperature Temperature Source Pulse Rate 93 Respiratory Rate Blood Pressure 160/97 H BP Systolic 160 BP Diastolic 97 Pulse Ox 98 11/09/23 18:19 11/09/23 18:19 Temperature Temperature Source Pulse Rate 91 Respiratory Rate Blood Pressure BP Systolic BP Diastolic Pulse Ox 98 Physical Exam Const alert, oriented x3 and no apparent distress Chest inspection of chest normal GI soft to palpation, non-tender and non-distended Inspection: gravid Labs Labs Labs: Blood Type AB POSITIVE Antibody Screen NEGATIVE Hct 35.3 % (37-47) L Hgb 11.4 g/dL (12.0-15.0) L Syphilis Total Ab Non-reactive Rubella IgG Antibody Reactive (Nonreactive) Hep Bs Antigen Non-Reactive (Nonreactive) Hepatitis C Antibody Non-Reactive (Nonreactive) Chlamydia DNA ([facility]ER) Negative (Negative) N.gonorrhoeae DNA ([facility]ER) Negative (Negative) HIV 1&2 Antibody Non-Reactive (Nonreactive) Glucose 1 Hr 50 gm 125 mg/dL (70-140) Assessment & Plan (1) Pre-eclampsia: QUALIFIERS: Trimester: third trimester Qualified Code(s): O14.93 - Unspecified pre-eclampsia, third trimester COMMENT: @ 37&2 (2) Ventriculomegaly of brain on ultrasound: PLAN: Plan Preeclampsia - labs normal. Start magnesium sulfate. Needs induction. FWB - plan is for delivery at [facility] as needs post stephenie US of brain. Patient discussed with ([facility]) & will transfer to [facility]
[2023-11-09 18:21] LABS: AST(SGOT) 16 U/L (15-37); Alanine Aminotransfer ALT/SGPT 19 U/L (13-56); Creatinine, Serum 0.52 mg/dL (0.55-1.02); EST Glomerular Filtration Rate 144 mL/min (>60); Est Glom Filt Rate - Afr Amer 174 mL/min (>60); Uric Acid 4.9 mg/dL (2.6-6.0)
[2023-11-09 18:25] LABS: Protein, Urine (Random) 10.3 mg/dL (<11.9); Protein:Creat Ratio 227 mg/g CRE (0-200)
[2023-11-09] MEDS: Magnesium Sulfate 4gm/100mL 4 GM/100 ML IV.SOLN. IV (18:38)
[2023-11-09] MEDS: Magnesium Sulfate 20 GM/500 ML BAG IV (19:00)
--- NOTE | 2023-11-09 19:29 | NURSING ---
See QS for vital signs.
[2023-11-09] MEDS: Acetaminophen 500 MG Tablet 1000 MG PO (21:03)
== END 2023-11-09 22:50 | disposition short-term general hospital (02) ==
LOC: WPOUT 17:29 → WP 17:30
PROVIDERS: Referring Provider Obstetrics & Gynecology; Visit Provider Obstetrics & Gynecology
DX: O14.93 Unspecified pre-eclampsia, third trimester (principal); O99.891 Other specified diseases and conditions complicating pregnancy; R51.9 Headache, unspecified; Z3A.37 37 weeks gestation of pregnancy; O99.343 Other mental disorders complicating pregnancy, third trimester; F32.A Depression, unspecified; F41.9 Anxiety disorder, unspecified; Z79.899 Other long term (current) drug therapy; F17.210 Nicotine dependence, cigarettes, uncomplicated; O99.333 Smoking (tobacco) complicating pregnancy, third trimester; O35.09X0 Maternal care for (suspected) other central nervous system malformation or damage in fetus, not applicable or unspecified
CPT/HCPCS: 96365; 96366; 96375; 36415; 59025; 59050; 82565; 82570; 84156; 84450; 84460; 84550; 85027; 99221; G0378